=== PATIENT | male | born 1940 | race Caucasian/White ===

== ENCOUNTER 2020-12-05 04:31 | Emergency (ER) | payer OTHER ==
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
[2020-12-05] MEDS ORDERED: LORazepam 2 MG/ML SDV IVPUSH ONE (05:17)
[2020-12-05] MEDS ORDERED: Albuterol/Ipratropium 3.0-0.5 MG/3 ML Neb Soln NEB ONE (05:25)
[2020-12-05] MEDS ORDERED: methylPREDNISolone Sodium Succinate 125 MG/2 ML SDV IVPUSH ONE (05:26)
[2020-12-05] MEDS ORDERED: Doxycycline 100 MG Cap PO ONE (07:35)
--- NOTE | 2020-12-05 07:48 | CR ---
Chest: Portable view of the chest was obtained. Comparison: No prior chest imaging is available. Heart size and mediastinum are within normal limits. Lungs are clear but hyperinflated. Bony structures are osteopenic. No acute osseous abnormality is seen on this study. Impression: 1. Emphysematous change. 2. Nothing acute is seen on portable chest x-ray. Diagnostic code #2
== END 2020-12-05 08:50 | disposition home or self-care (01) ==
LOC: JD.ED 04:31
DX: J40 Bronchitis, not specified as acute or chronic (principal); J06.9 Acute upper respiratory infection, unspecified; I10 Essential (primary) hypertension; Z20.822 Contact with and (suspected) exposure to COVID-19; Z72.0 Tobacco use
CPT/HCPCS: 36415; 71045; 80053; 84484; 85025; 85610; 85730; 87635; 93005; 94640; 96374; 96375; 99285; A9270; J2060; J2930; J7620-GY; U0002

== ENCOUNTER 2020-12-09 10:17 | Inpatient (IN) | payer OTHER, MEDICARE ==
[2020-12-09] MEDS ORDERED: Sodium Chloride 0.9% 10 ML Syringe FLUSH PRN ×2 (10:31→11:04)
[2020-12-09] MEDS ORDERED: Sodium Chloride 0.9% 1,000 ML IV STA (10:49)
[2020-12-09] MEDS ORDERED: Ondansetron 4 MG/2 ML SDV IVPUSH ONE (11:01)
[2020-12-09] MEDS ORDERED: Albuterol/Ipratropium 3.0-0.5 MG/3 ML Neb Soln NEB ONE (11:01)
[2020-12-09] MEDS ORDERED: Iopamidol 612 MG/ML 100 ML Bottle IVPUSH ONE (11:04)
--- NOTE | 2020-12-09 11:12 | EDM.PDOC ---
ED HPI GENERAL MEDICAL PROBLEM - General Chief Complaint: Gastrointestinal Problem Stated Complaint: [facility] Time Seen by Provider: 12/09/20 10:31 Source of Information: Reports: Patient, RN Notes Reviewed History Limitations: Reports: No Limitations - History of Present Illness INITIAL COMMENTS - FREE TEXT/NARRATIVE: She is a 79-year-old male presenting to the emergency department via [facility] with complaints of GI bleed. He reports around 6 AM this morning, he awoke and had to have a bowel movement. At that time he reports his stool was light red, diarrhea nature. Since that time, he has gone to 6 to 8-4 times and it is now dark red in color. Denies any history of GI bleeds and he is not on blood thinners. He denies any abdominal pain. States he feels nauseous but has had no vomiting. Does report dizziness with position changes. Patient has a history of chronic anemia. Patient has a history of COPD chronically on 3 L of oxygen by nasal cannula. He was seen here 4 days ago and started on doxycycline and prednisone for treatment of COPD exacerbation. He has not taken the prednisone today, but has been taking it daily prior to today. He continues to have intermittent chest discomfort which he describes as tightness and feels it is likely related to his COPD. He last had a colonoscopy 4 to 5 years ago. Reports they removed a number of polyps but they all came back benign. He is in the area visiting family and currently lives in a camper. He is ultimately planning to end up in [place] where he will live. Patient does report depr ession. States his recently . He has had thoughts about dying but denies any suicidal plan or intent. He has never attempted to harm himself in the past. Patient reports that he does have advanced directives but does not have them with him and they are not on file, however he did verbalized to both myself and KAYDEN Peck that he wishes to be a DNR/DNI. Bilateral Nare Pain Score (Numeric/FACES): 3 - Related Data Allergies Allergy/AdvReac Type Severity Reaction Status Date / Time No Known Allergies Allergy Verified 12/09/20 15:56 Home Meds: Home Meds Doxycycline [Vibra-Tabs] 100 mg PO BID #14 tablet 12/05/20 [Rx] Acetaminophen 1,000 mg PO TID PRN 12/09/20 [History] Albuterol [Proventil HFA] 2 puff INH QID PRN 12/09/20 [History] Albuterol [Proventil Neb Soln] 2.5 mg INH QID PRN 12/09/20 [History] Ascorbic Acid 1,000 mg PO DAILY 12/09/20 [History] Budesonide/Formoterol [Symbicort 160-4.5 MCG] 2 puff INH BID 12/09/20 [History] Calcium Carbonate [Tums] 500 mg CHEW QID PRN 12/09/20 [History] Calcium Carbonate/Vitamin D3 [Calcium 600Mg-D3 400 Unit Sfgl] 1 tab PO BID 12/09/20 [History] Cannabidiol (Cbd) Extract [CBD Oil] 1 dose PO ASDIRECTED PRN 12/09/20 [History] Cholecalciferol (Vitamin D3) [D3-2000] 250 mcg PO DAILY 12/09/20 [History] Ferrous Gluconate 324 mg PO Q48H 12/09/20 [History] Fluticasone Propionate [Flonase Allergy Relief] 2 sprays NASBOTH DAILY 12/09/20 [History] LORazepam [Ativan] 0.5 mg PO DAILY PRN 12/09/20 [History] Levothyroxine Sodium [Levoxyl] 100 mcg PO ACBREAKFAST 12/09/20 [History] Lidocaine 5% [Lidoderm 5%] 700 mg TOP DAILY 12/09/20 [History] Loratadine [Claritin] 10 mg PO DAILY PRN 12/09/20 [History] Melatonin 9 mg PO BEDTIME 12/09/20 [History] Meloxicam 15 mg PO QPM 12/09/20 [History] Menthol [Icy Hot] 1 patch TOP DAILY PRN 12/09/20 [History] Multivit with Iron,Minerals [Complete Senior] 1 tab PO DAILY 12/09/20 [History] Max-3 Fatty Acids/Fish Oil [Fish Oil 1,000 mg Capsule] 1 cap PO DAILY 12/09/20 [History] Omeprazole 20 mg PO QPM 12/09/20 [History] Tiotropium [place] [Spiriva Respimat] 2 puff INH DAILY 12/09/20 [History] Zinc Sulfate 50 mg PO DAILY 12/09/20 [History] guaiFENesin [Guaifenesin] 400 mg PO TID PRN 12/09/20 [History] lisinopriL [Zestril] 40 mg PO DAILY 12/09/20 [History] polyethylene glycoL 3350 [Polyethylene Glycol 3350] 17 gm PO DAILY PRN 12/09/20 [History] Past Medical History HEENT History: Reports: Impaired Vision Other HEENT History: septoplasty Cardiovascular History: Reports: High Cholesterol Respiratory History: Reports: COPD, SOB Gastrointestinal History: Reports: Diverticulosis, Other (See Below) Other Gastrointestinal History: Diverticulitis. Musculoskeletal History: Reports: Back Pain, Chronic, Osteoporosis Psychiatric History: Reports: Anxiety, Depression Endocrine/Metabolic History: Reports: Hypothyroidism - Infectious Disease History Infectious Disease History: Reports: Chicken Pox, Measles Social & Family History - Tobacco Use Tobacco Use Status *Q: Current Every Day Tobacco User Years of Tobacco use: 60 Packs/Tins Daily: 0.2 - Caffeine Use Caffeine Use: Reports: Coffee - Recreational Drug Use Recreational Drug Use: Yes Recreational Drug Type: Reports: Marijuana/Hashish ED ROS GENERAL - Review of Systems Review Of Systems: See Below Constitutional: Reports: No Symptoms HEENT: Reports: No Symptoms Respiratory: Reports: Shortness of Breath, Pleuritic Chest Pain, Cough Cardiovascular: Reports: Dyspnea on Exertion, Lightheadedness. Denies: Syncope Endocrine: Reports: No Symptoms GI/Abdominal: Reports: Bloody Stool, Diarrhea, Nausea. Denies: Abdominal Pain, Vomiting : Reports: No Symptoms Musculoskeletal: Reports: No Symptoms Skin: Reports: No Symptoms Neurological: Reports: Dizziness Psychiatric: Reports: No Symptoms Hematologic/Lymphatic: Reports: No Symptoms Immunologic: Reports: No Symptoms ED EXAM, GI/ABD - Physical Exam Exam: See Below Exam Limited By: No Limitations General Appearance: Alert, WD/WN, No Apparent Distress Respiratory/Chest: Lungs Clear, No Accessory Muscle Use, Chest Non-Tender, Decreased Breath Sounds, Accessory Muscle Use, Prolonged Expiration. No: Wheezing Cardiovascular: Normal Peripheral Pulses, Regular Rate, Rhythm, No Edema, No Gallop, No JVD, No Murmur, No Rub GI/Abdominal Exam: Normal Bowel Sounds, Soft, Non-Tender, No Organomegaly, No Distention, No Abnormal Bruit, No Mass, Pelvis Stable Rectal (Males) Exam: Heme + Stool Neurological: Alert, Oriented, CN II-XII Intact, Normal Cognition, Normal Reflexes, No Motor/Sensory Deficits Psychiatric: Normal Affect, Normal Mood Skin Exam: Warm, Dry, Intact, Normal Color, No Rash #1 Interpretation EKG Date: 12/09/20 Time: 11:09 Rhythm: NSR Rate (Beats/Min): 82 [place]: Normal P-Wave: Present QRS: Normal ST-T: Normal QT: Normal Course - Vital Signs Last Recorded V/S: Last Vital Signs Temp 97.9 F 12/10/20 10:06 Pulse 71 12/10/20 11:17 Resp 20 12/10/20 10:06 BP 143/62 H 12/10/20 11:17 Pulse Ox 97 12/10/20 12:59 - Orders/Labs/Meds Orders: Medication Orders Acetaminophen (Acetaminophen 325 Mg Tab) 650 mg PO Q4H PRN PRN Reason: Pain (Mild 1-3)/fever Last Admin: 12/09/20 21:11 Dose: 650 mg Documented by: BROWN Albuterol (Albuterol 0.083% 2.5 Mg/3 Ml Neb Soln) 2.5 mg NEB Q2H PRN PRN Reason: Shortness Of Breath/wheezing Last Admin: 12/10/20 08:58 Dose: 2.5 mg Documented by: Admin: 12/09/20 18:49 Dose: 2.5 mg Documented by: Admin: 12/09/20 15:06 Dose: 2.5 mg Documented by: AUSTIN Albuterol (Albuterol 6.7 Gm Inhaler) 0 gm INH QID PRN PRN Reason: Shortness of Breath Last Admin: 12/10/20 11:42 Dose: 2 inhalation Documented by: Admin: 12/10/20 06:08 Dose: 2 inhalation Documented by: Admin: 12/10/20 00:34 Dose: 2 inhalation Documented by: LUIS Albuterol/Ipratropium (Albuterol/Ipratropium 3.0-0.5 Mg/3 Ml Neb Soln) 3 ml NEB Q4H PRN PRN Reason: Shortness Of Breath/wheezing Last Admin: 12/10/20 12:57 Dose: 3 ml Documented by: AUSTIN Calcium Carbonate/Glycine (Calcium Carbonate 500 Mg Tab.Chew) 0 mg CHEW QID PRN PRN Reason: Other Guaifenesin (Guaifenesin 600 Mg Tab.Er) 600 mg PO BID [facility] Last Admin: 12/10/20 11:23 Dose: 600 mg Documented by: Admin: 12/09/20 21:57 Dose: 600 mg Documented by: ALINE Influenza Virus Vaccine (Flu Vacc [id number](65up)/Mf59c/Pf 60 Mcg/0.5 Ml Syringe) 60 mcg IM .ONCE ONE Stop: 12/11/20 12:01 Loratadine (Loratadine 10 Mg Tab) 10 mg PO DAILY PRN PRN Reason: Allergies Lorazepam (Lorazepam 0.5 Mg Tab) 0.5 mg PO DAILY PRN PRN Reason: Other Melatonin (Melatonin 3 Mg Tab) 9 mg PO BEDTIME [facility] Mometasone Furoate/Formoterol Fumar (Formoterol/Mometasone 200-5 Mcg 8.8 Gm Inhaler) 2 puff IH BIDRT [facility] Last Admin: 12/10/20 06:08 Dose: 2 inhalation Documented by: Admin: 12/10/20 00:43 Dose: 2 inhalation Documented by: LUIS Ondansetron HCl (Ondansetron 4 Mg/2 Ml Sdv) 4 mg IV Q6H PRN PRN Reason: Nausea/Vomiting Last Admin: 12/10/20 07:36 Dose: 4 mg Documented by: Admin: 12/09/20 23:14 Dose: 4 mg Documented by: MIKEY Sodium Chloride (Sodium Chloride 0.9% 10 Ml Syringe) 10 ml FLUSH ONETIME PRN PRN Reason: IV FLUSH Last Admin: 12/09/20 11:25 Dose: 10 ml Documented by: SANDRINE Tiotropium Marion (Tiotropium Marion 4 Gm Inhalation Grassflat (2.5mcg/1 Dose; 10 Doses)) 0 gm INH DAILY [facility] Last Admin: 12/10/20 08:59 Dose: 2 dose Documented by: AUSTIN Labs: Laboratory Tests 12/09/20 12/09/20 12/09/20 Range/Units 10:46 10:55 10:55 WBC 9.34 H (4.23-9.07) K/mm3 RBC 3.11 L (4.63-6.08) M/mm3 Hgb 9.5 L (13.7-17.5) gm/dl Hct 30.9 L (40.1-51.0) % MCV 99.4 H (79.0-92.2) fl MCH 30.5 (25.7-32.2) pg MCHC 30.7 L (32.2-35.5) g/dl RDW Std Deviation 48.0 H (35.1-43.9) fL Plt Count 270 (163-337) K/mm3 MPV 10.3 (9.4-12.3) fl Neut % (Auto) 66.1 (34.0-67.9) % Lymph % (Auto) 24.9 (21.8-53.1) % [place] % (Auto) 7.3 (5.3-12.2) % Eos % (Auto) 1.1 (0.8-7.0) Baso % (Auto) 0.4 (0.1-1.2) % Neut # (Auto) 6.17 H (1.78-5.38) K/mm3 Lymph # (Auto) 2.33 (1.32-3.57) K/mm3 [place] # (Auto) 0.68 (0.30-0.82) K/mm3 Eos # (Auto) 0.10 (0.04-0.54) K/mm3 Baso # (Auto) 0.04 (0.01-0.08) K/mm3 Sodium 143 (136-145) mEq/L Potassium 3.4 L (3.5-5.1) mEq/L Chloride 105 (98-107) mEq/L Carbon Dioxide 30 (21-32) mEq/L Anion Gap 11.4 (5-15) BUN 17 (7-18) mg/dL Creatinine 0.8 (0.7-1.3) mg/dL Est Cr Clr Drug Dosing 73.63 mL/min Estimated GFR (MDRD) > 60 (>60) mL/min BUN/Creatinine Ratio 21.3 H (14-18) Glucose 107 H (70-99) mg/dL Calcium 8.8 (8.5-10.1) mg/dL Total Bilirubin 0.3 (0.2-1.0) mg/dL AST 9 L (15-37) U/L ALT 21 (16-63) U/L Alkaline Phosphatase 65 (46-116) U/L Troponin I (0.00-0.056) ng/mL C-Reactive Protein <0.2 (<1.0) mg/dL NT-Pro-B Natriuret Pep (0-450) pg/mL Total Protein 6.9 (6.4-8.2) g/dl Albumin 3.7 (3.4-5.0) g/dl Globulin 3.2 gm/dL Albumin/Globulin Ratio 1.2 (1-2) TSH 3rd Generation (0.358-3.74) uIU/mL Urine Color Yellow (Yellow) Urine Appearance Clear (Clear) Urine pH 6.0 (5.0-8.0) Ur Specific [place] 1.025 (1.005-1.030) Urine Protein Trace H (Negative) Urine Glucose (UA) Negative (Negative) Urine Ketones Negative (Negative) Urine Occult Blood Negative (Negative) Urine Nitrite Negative (Negative) Urine Bilirubin Negative (Negative) Urine Urobilinogen 0.2 (0.2-1.0) Ur Leukocyte Esterase Negative (Negative) Urine RBC 0-5 (0-5) /hpf Urine WBC 0-5 (0-5) /hpf Ur Squamous Epith Cells 0-5 (0-5) /hpf Urine Bacteria Few (FEW) /hpf Urine Mucus Not seen (FEW) /hpf SARS-CoV-2 RNA (MILO) (NEGATIVE) Blood Type Gel Antibody Screen Crossmatch 12/09/20 12/09/20 12/09/20 Range/Units 10:55 10:55 10:55 WBC (4.23-9.07) K/mm3 RBC (4.63-6.08) M/mm3 Hgb (13.7-17.5) gm/dl Hct (40.1-51.0) % MCV (79.0-92.2) fl MCH (25.7-32.2) pg MCHC (32.2-35.5) g/dl RDW Std Deviation (35.1-43.9) fL Plt Count (163-337) K/mm3 MPV (9.4-12.3) fl Neut % (Auto) (34.0-67.9) % Lymph % (Auto) (21.8-53.1) % [place] % (Auto) (5.3-12.2) % Eos % (Auto) (0.8-7.0) Baso % (Auto) (0.1-1.2) % Neut # (Auto) (1.78-5.38) K/mm3 Lymph # (Auto) (1.32-3.57) K/mm3 [place] # (Auto) (0.30-0.82) K/mm3 Eos # (Auto) (0.04-0.54) K/mm3 Baso # (Auto) (0.01-0.08) K/mm3 Sodium (136-145) mEq/L Potassium (3.5-5.1) mEq/L Chloride (98-107) mEq/L Carbon Dioxide (21-32) mEq/L Anion Gap (5-15) BUN (7-18) mg/dL Creatinine (0.7-1.3) mg/dL Est Cr Clr Drug Dosing mL/min Estimated GFR (MDRD) (>60) mL/min BUN/Creatinine Ratio (14-18) Glucose (70-99) mg/dL Calcium (8.5-10.1) mg/dL Total Bilirubin (0.2-1.0) mg/dL AST (15-37) U/L ALT (16-63) U/L Alkaline Phosphatase (46-116) U/L Troponin I < 0.017 (0.00-0.056) ng/mL C-Reactive Protein (<1.0) mg/dL NT-Pro-B Natriuret Pep 265 (0-450) pg/mL Total Protein (6.4-8.2) g/dl Albumin (3.4-5.0) g/dl Globulin gm/dL Albumin/Globulin Ratio (1-2) TSH 3rd Generation (0.358-3.74) uIU/mL Urine Color (Yellow) Urine Appearance (Clear) Urine pH (5.0-8.0) Ur Specific [place] (1.005-1.030) Urine Protein (Negative) Urine Glucose (UA) (Negative) Urine Ketones (Negative) Urine Occult Blood (Negative) Urine Nitrite (Negative) Urine Bilirubin (Negative) Urine Urobilinogen (0.2-1.0) Ur Leukocyte Esterase (Negative) Urine RBC (0-5) /hpf Urine WBC (0-5) /hpf Ur Squamous Epith Cells (0-5) /hpf Urine Bacteria (FEW) /hpf Urine Mucus (FEW) /hpf SARS-CoV-2 RNA (MILO) (NEGATIVE) Blood Type O NEGATIVE Gel Antibody Screen Negative Crossmatch See Detail 12/09/20 12/09/20 12/09/20 Range/Units 10:55 10:55 11:05 WBC (4.23-9.07) K/mm3 RBC (4.63-6.08) M/mm3 Hgb (13.7-17.5) gm/dl Hct (40.1-51.0) % MCV (79.0-92.2) fl MCH (25.7-32.2) pg MCHC (32.2-35.5) g/dl RDW Std Deviation (35.1-43.9) fL Plt Count (163-337) K/mm3 MPV (9.4-12.3) fl Neut % (Auto) (34.0-67.9) % Lymph % (Auto) (21.8-53.1) % [place] % (Auto) (5.3-12.2) % Eos % (Auto) (0.8-7.0) Baso % (Auto) (0.1-1.2) % Neut # (Auto) (1.78-5.38) K/mm3 Lymph # (Auto) (1.32-3.57) K/mm3 [place] # (Auto) (0.30-0.82) K/mm3 Eos # (Auto) (0.04-0.54) K/mm3 Baso # (Auto) (0.01-0.08) K/mm3 Sodium (136-145) mEq/L Potassium (3.5-5.1) mEq/L Chloride (98-107) mEq/L Carbon Dioxide (21-32) mEq/L Anion Gap (5-15) BUN (7-18) mg/dL Creatinine (0.7-1.3) mg/dL Est Cr Clr Drug Dosing mL/min Estimated GFR (MDRD) (>60) mL/min BUN/Creatinine Ratio (14-18) Glucose (70-99) mg/dL Calcium (8.5-10.1) mg/dL Total Bilirubin (0.2-1.0) mg/dL AST (15-37) U/L ALT (16-63) U/L Alkaline Phosphatase (46-116) U/L Troponin I (0.00-0.056) ng/mL C-Reactive Protein (<1.0) mg/dL NT-Pro-B Natriuret Pep (0-450) pg/mL Total Protein (6.4-8.2) g/dl Albumin (3.4-5.0) g/dl Globulin gm/dL Albumin/Globulin Ratio (1-2) TSH 3rd Generation 1.545 (0.358-3.74) uIU/mL Urine Color (Yellow) Urine Appearance (Clear) Urine pH (5.0-8.0) Ur Specific [place] (1.005-1.030) Urine Protein (Negative) Urine Glucose (UA) (Negative) Urine Ketones (Negative) Urine Occult Blood (Negative) Urine Nitrite (Negative) Urine Bilirubin (Negative) Urine Urobilinogen (0.2-1.0) Ur Leukocyte Esterase (Negative) Urine RBC (0-5) /hpf Urine WBC (0-5) /hpf Ur Squamous Epith Cells (0-5) /hpf Urine Bacteria (FEW) /hpf Urine Mucus (FEW) /hpf SARS-CoV-2 RNA (MILO) Negative (NEGATIVE) Blood Type Gel Antibody Screen Crossmatch See Detail Meds: Medications Generic Name Dose Route Start Last Admin Trade Name Freq PRN Reason Stop Dose Admin Acetaminophen 650 mg 12/09/20 14:21 12/09/20 21:11 Acetaminophen 325 Mg Tab PO 650 mg Q4H PRN Administration Pain (Mild 1-3)/fever Albuterol 2.5 mg 12/09/20 14:21 12/10/20 08:58 Albuterol 0.083% 2.5 Mg/3 Ml Neb Soln NEB 2.5 mg Q2H PRN Administration Shortness Of Breath/wheezing Albuterol 0 gm 12/09/20 22:03 12/10/20 11:42 Albuterol 6.7 Gm Inhaler INH 2 inhalation QID PRN Administration Shortness of Breath Albuterol/Ipratropium 3 ml 12/09/20 14:21 12/10/20 12:57 Albuterol/Ipratropium 3.0-0.5 Mg/3 Ml Neb Soln NEB 3 ml Q4H PRN Administration Shortness Of Breath/wheezing Calcium Carbonate/Glycine 0 mg 12/09/20 22:03 Calcium Carbonate 500 Mg Tab.Chew CHEW QID PRN Other Guaifenesin 600 mg 12/09/20 21:30 12/10/20 11:23 Guaifenesin 600 Mg Tab.Er PO 600 mg BID DIAZ Administration Influenza Virus Vaccine 60 mcg 12/11/20 12:00 Flu Vacc [id number](65up)/Mf59c/Pf 60 Mcg/0.5 Ml Syringe IM 12/11/20 12:01 .ONCE ONE Loratadine 10 mg 12/09/20 22:03 Loratadine 10 Mg Tab PO DAILY PRN Allergies Lorazepam 0.5 mg 12/09/20 22:03 Lorazepam 0.5 Mg Tab PO DAILY PRN Other Melatonin 9 mg 12/10/20 21:00 Melatonin 3 Mg Tab PO BEDTIME DIAZ Mometasone Furoate/Formoterol Fumar 2 puff 12/10/20 00:39 12/10/20 06:08 Formoterol/Mometasone 200-5 Mcg 8.8 Gm Inhaler IH 2 inhalation BIDRT DIAZ Administration Ondansetron HCl 4 mg 12/09/20 14:21 12/10/20 07:36 Ondansetron 4 Mg/2 Ml Sdv IV 4 mg Q6H PRN Administration Nausea/Vomiting Sodium Chloride 10 ml 12/09/20 11:04 12/09/20 11:25 Sodium Chloride 0.9% 10 Ml Syringe FLUSH 10 ml ONETIME PRN Administration IV FLUSH Tiotropium [place] 0 gm 12/10/20 09:00 12/10/20 08:59 Tiotropium [place] 4 Gm Inhalation Grassflat (2.5mcg/1 Dose; 10 Doses) INH 2 dose DAILY DIAZ Administration Discontinued Medications Generic Name Dose Route Start Last Admin Trade Name Freq PRN Reason Stop Dose Admin Albuterol 2.5 mg 12/09/20 22:03 Albuterol 0.083% 2.5 Mg/3 Ml Neb Soln INH QID PRN Shortness of Breath Albuterol/Ipratropium 3 ml 12/09/20 11:01 12/09/20 11:40 Albuterol/Ipratropium 3.0-0.5 Mg/3 Ml Neb Soln NEB 12/09/20 11:02 3 ml ONETIME ONE Administration Enoxaparin Sodium 40 mg 12/10/20 09:00 Enoxaparin 40 Mg/0.4 Ml Syringe SUBCUT DAILY DIAZ Fentanyl Confirm 12/10/20 08:31 Fentanyl 100 Mcg/2 Ml Sdv Administered 12/10/20 08:32 Dose 100 mcg .ROUTE .STK-MED ONE Sodium Chloride 1,000 mls @ 150 mls/hr 12/09/20 10:49 12/09/20 14:44 Normal Saline IV 12/09/20 17:28 0 mls/hr NOW STA Infusion Sodium Chloride 150 mls @ 100 mls/hr 12/09/20 23:15 12/09/20 23:46 Normal Saline IV 12/10/20 00:44 100 mls/hr ASDIRECTED ONE Administration Sodium Chloride Confirm 12/09/20 23:30 12/10/20 02:15 Normal Saline Administered 12/10/20 00:01 Not Given Dose 100 mls @ as directed .ROUTE .STK-MED ONE Lidocaine HCl Confirm 12/10/20 08:32 Xylocaine-Mpf 1% Administered 12/10/20 08:33 Dose 4 mls @ as directed .ROUTE .STK-MED ONE Lactated Ringer's Confirm 12/10/20 09:34 Ringers, Lactated Administered 12/10/20 09:35 Dose 1,000 mls @ as directed .ROUTE .STK-MED ONE Iopamidol 100 ml 12/09/20 11:04 12/09/20 11:25 Iopamidol 612 Mg/Ml 100 Ml Bottle IVPUSH 12/09/20 11:05 100 ml ONETIME ONE Administration Midazolam HCl Confirm 12/10/20 08:32 Midazolam 1 Mg/Ml 2 Ml Sdv Administered 12/10/20 08:33 Dose 2 mg .ROUTE .STK-MED ONE Mometasone Furoate/Formoterol Fumar 2 puff 12/10/20 06:00 Formoterol/Mometasone 200-5 Mcg 8.8 Gm Inhaler IH BIDRT [facility] Ondansetron HCl 4 mg 12/09/20 11:01 12/09/20 11:35 Ondansetron 4 Mg/2 Ml Sdv IVPUSH 12/09/20 11:02 4 mg ONETIME ONE Administration Polyethylene Glycol/Electrolytes 4,000 ml 12/09/20 21:32 12/09/20 21:57 Polyethylene Glycol/Electrolytes 4,000 Ml Bottle PO 12/09/20 21:33 4,000 ml ONETIME ONE Administration Prednisone 40 mg 12/09/20 15:07 12/09/20 15:36 Prednisone 20 Mg Tab PO 12/09/20 15:08 Not Given ONETIME ONE Propofol Confirm 12/10/20 08:31 Propofol 200 Mg/20 Ml Sdv Administered 12/10/20 08:32 Dose 200 mg .ROUTE .STK-MED ONE Propofol Confirm 12/10/20 09:47 Propofol 200 Mg/20 Ml Sdv Administered 12/10/20 09:48 Dose 200 mg .ROUTE .STK-MED ONE Sodium Chloride 10 ml 12/09/20 10:31 12/09/20 11:46 Sodium Chloride 0.9% 10 Ml Syringe FLUSH 10 ml ASDIRECTED PRN Administration Keep Vein Open - Re-Assessments/Exams Free Text/Narrative Re-Assessment/Exam: Patient is a 79-year-old male presenting to the emergency department with complaints of acute onset of GI bleed around 6 AM this morning. He estimates has had 6-8 episodes of watery, bloody diarrhea which she describes a significant amount. He did have a BM on arrival to ER and it is watery and dark red. Abdominal exam is unremarkable. Lung sounds are diminished with no wheezing. Patient states that he continues to feel tightness chest. I will give him a DuoNeb breathing treatment. I have also ordered blood work, urinalysis, Covid test in preparation for likely admission, EKG, chest x-ray, and CT scan of the abdomen pelvis with IV contrast only. 12/09/20 12:25 Hematology significant for hemoglobin low at 9.5, potassium 3.4. Otherwise unremarkable. Urinalysis negative for infection. Covid is negative. CT scan of the abdomen pelvis impression as follows: 1. Diverticuli within the sigmoid and descending colon. No inflammatory changes seen to indicate diverticulitis. 2. Other findings as described above. Nothing acute is appreciated on CT study of the abdomen pelvis. 3. Please consider further evaluation by endoscopy as needed. Case was discussed with general surgeon on-call, Dr. Blanco. He recommended admission under hospitalist service for monitoring. If bleeding does not stop and hemoglobin continues to drop, he will consider endoscopy tomorrow. Case was discussed with hospitalist, Dr. Lizama. He is excepted the patient for admission. Patient updated and is in agreement this plan. Departure - Departure Time of Disposition: 21:25 Disposition: Admitted As Inpatient 67 Condition: Good Clinical Impression: GI bleed not requiring more than 4 units of blood in 24 hours, ICU, or surgery COPD (chronic obstructive pulmonary disease) Qualifiers: COPD type: COPD with acute exacerbation Qualified Code(s): J44.1 - Chronic obstructive pulmonary disease with (acute) exacerbation - Discharge Information Sepsis Event Note (ED) - Evaluation Sepsis Screening Result: No Definite Risk
--- NOTE | 2020-12-09 11:38 | CR ---
Chest: Portable view of the chest was obtained. Comparison: Prior chest x-ray of 12/05/20. Lungs are hyperinflated compatible with emphysematous change. Lungs show no acute parenchymal change. Heart size and mediastinum are within normal limits. Impression: 1. Emphysematous change. 2. Nothing acute is seen on portable chest x-ray. Diagnostic code #2
--- NOTE | 2020-12-09 12:32 | CT ---
CT abdomen and pelvis Technique: Multiple axial sections were obtained from above the dome of the diaphragm inferiorly through the pubic symphysis. Intravenous contrast was utilized. No oral contrast has been given. Delayed images were also obtained through the abdomen and pelvis. Reconstructed coronal and sagittal images were obtained. Comparison: No prior abdominal imaging is available. Findings: Visualized lung bases show emphysematous change without acute finding. Liver contains no focal abnormality. Spleen size is normal. Adrenal glands show no nodule. Pancreas is within normal limits. Gallbladder contains no calcified gallstones. Kidneys show symmetric contrast enhancement. No hydronephrosis is seen. Small abnormality is noted within the mid left kidney measuring 8 mm. This is too small to get accurate Hounsfield unit measurements. Findings most likely are due to a cyst. Ureters show no dilatation. Contrast is noted within the ureters and the bladder on delayed images. Bladder wall is somewhat thickened most likely related to the patient's age. Abdominal aorta shows diffuse atherosclerotic calcification. Areas of ectasia are seen with no aneurysm. Calcification continues into the iliac vessels. No retroperitoneal adenopathy or mesenteric abnormalities are seen. No pelvic mass or adenopathy is seen. Small fat-containing left inguinal hernia is noted. Scattered diverticuli are seen within the sigmoid colon and descending colon. No inflammatory change is seen to indicate diverticulitis. Appendix is seen which is normal. No discrete bowel dilatation is seen. No bowel wall thickening is noted. Bone window settings were reviewed which show a compression deformity within L2. This is most likely old. Severe disc space narrowing at L5-S1 is noted with vacuum disc phenomena. No acute osseous abnormality is seen. Impression: 1. Diverticuli within the sigmoid and descending colon. No inflammatory change is seen to indicate diverticulitis. 2. Other findings as described above. Nothing acute is appreciated on CT study of the abdomen and pelvis. 3. Please consider if further evaluation by endoscopy is needed. Diagnostic code #2
--- NOTE | 2020-12-09 14:11 | PCM.HP.2 ---
H&P History of Present Illness - General Date of Service: 12/09/20 Admit Problem/Dx: Admission Diagnosis/Problem Admission Diagnosis/Problem GI bleed not requiring more than 4 units of blood in 24 hours, ICU, or surgery Source of Information: Patient, Other (ED note) History Limitations: Reports: No Limitations - History of Present Illness Initial Comments - Free Text/Narative: Jean-Claude is a 79yo white male who presented to the ED on 12/09/2020 due to bloody diarrhea. At 0600 today he had a bowel movement with light red diarrhea. He has had 6-8 loose BM's since which have had darker red blood in them. He has also had abdominal pain which is crampy in nature which started in the last few hours since he has been in the ED. He is nauseous. Denies any previous history of melena or hematochezia, hemorrhoids, clotting or bleeding disorder. He had a colonoscopy with polypectomy 4-5 years ago, all were benign. He has a history of diverticulosis and constipation for which he takes Miralax or a stool softener daily. Abdominal CT revealed diverticuli in the descending and sigmoid colon without any sign of inflammation. General surgery was consulted and recommended observation and endoscopy tomorrow if hgb continues to drop. Labs were unrema rkable except for Hgb of 9.5 and K+ of 3.4. He was seen in the ED 4 days ago for a COPD exacerbation, hgb at that time was 10.2, and was prescribed doxycycline and prednisone. He is on 3L of supplemental O2 at home. He still feels short of breath and is on 3L supplemental O2 with saturations in the upper 90s. He is a and receives primary care through the [facility], but unable to do so locally secondary to "being in transit". He is currently living in a camper with the assistance of his grandson as he is planning to make his way to [place] to live near his daughter. He smokes 4 cigarettes/day. - Related Data Allergies/Adverse Reactions: Allergies Allergy/AdvReac Type Severity Reaction Status Date / Time No Known Allergies Allergy Verified 12/05/20 04:46 Home Medications: Home Meds Doxycycline [Vibra-Tabs] 100 mg PO BID #14 tablet 12/05/20 [Rx] predniSONE 40 mg PO WITHBREAKFAST #10 tab 12/05/20 [Rx] Past Medical History HEENT History: Reports: Impaired Vision Other HEENT History: septoplasty Cardiovascular History: Reports: High Cholesterol Respiratory History: Reports: COPD, SOB Gastrointestinal History: Reports: Diverticulosis, Other (See Below) Other Gastrointestinal History: Diverticulitis. Musculoskeletal History: Reports: Back Pain, Chronic, Osteoporosis Psychiatric History: Reports: Anxiety, Depression Endocrine/Metabolic History: Reports: Hypothyroidism - Infectious Disease History Infectious Disease History: Reports: Chicken Pox, Measles Social & Family History - Tobacco Use Tobacco Use Status *Q: Current Every Day Tobacco User Years of Tobacco use: 60 Packs/Tins Daily: 0.2 - Caffeine Use Caffeine Use: Reports: Coffee - Recreational Drug Use Recreational Drug Use: Yes Recreational Drug Type: Reports: Marijuana/Hashish H&P Review of Systems - Review of Systems: Review Of Systems: Comprehensive ROS is negative, except as noted in HPI. Exam - Exam Exam: See Below - Vital Signs Vital Signs: Last Vital Signs Temp 97.1 F 12/09/20 10:20 Pulse 78 12/09/20 10:20 Resp 12 12/09/20 10:20 BP 140/80 12/09/20 10:20 Pulse Ox 100 12/09/20 11:01 Weight: 77.111 kg - Exam Quality Assessment: Supplemental Oxygen General: Alert, Oriented, Cooperative HEENT: Conjunctiva Clear, EOMI, Hearing Intact, Mucosa Moist & [place] Lungs: Decreased Breath Sounds (bilaterally), Crackles (faint), Other (paradoxical breathing at baseline) Cardiovascular: Regular Rate, Regular Rhythm GI/Abdominal Exam: Normal Bowel Sounds, Soft, Non-Tender, No Organomegaly, No Distention, No Mass Extremities: Normal Inspection, Normal Range of Motion, Non-Tender, No Pedal Edema, Normal Capillary Refill Skin: Warm, Dry, Intact Neurological: Cranial Nerves Intact Neuro Extensive - Mental Status: Alert, Normal Mood/Affect, Normal Cognition Neuro Extensive - Motor, Sensory, Reflexes: CN II-XII Intact Psychiatric: Alert, Normal Affect, Depressed - Patient Data Lab Results Last 24 hrs: Laboratory Results - last 24 hr 12/09/20 12/09/20 12/09/20 Range/Units 10:46 10:55 10:55 WBC 9.34 H (4.23-9.07) K/mm3 RBC 3.11 L (4.63-6.08) M/mm3 Hgb 9.5 L (13.7-17.5) gm/dl Hct 30.9 L (40.1-51.0) % MCV 99.4 H (79.0-92.2) fl MCH 30.5 (25.7-32.2) pg MCHC 30.7 L (32.2-35.5) g/dl RDW Std Deviation 48.0 H (35.1-43.9) fL Plt Count 270 (163-337) K/mm3 MPV 10.3 (9.4-12.3) fl Neut % (Auto) 66.1 (34.0-67.9) % Lymph % (Auto) 24.9 (21.8-53.1) % Branch % (Auto) 7.3 (5.3-12.2) % Eos % (Auto) 1.1 (0.8-7.0) Baso % (Auto) 0.4 (0.1-1.2) % Neut # (Auto) 6.17 H (1.78-5.38) K/mm3 Lymph # (Auto) 2.33 (1.32-3.57) K/mm3 Branch # (Auto) 0.68 (0.30-0.82) K/mm3 Eos # (Auto) 0.10 (0.04-0.54) K/mm3 Baso # (Auto) 0.04 (0.01-0.08) K/mm3 Sodium 143 (136-145) mEq/L Potassium 3.4 L (3.5-5.1) mEq/L Chloride 105 (98-107) mEq/L Carbon Dioxide 30 (21-32) mEq/L Anion Gap 11.4 (5-15) BUN 17 (7-18) mg/dL Creatinine 0.8 (0.7-1.3) mg/dL Est Cr Clr Drug Dosing 73.63 mL/min Estimated GFR (MDRD) > 60 (>60) mL/min BUN/Creatinine Ratio 21.3 H (14-18) Glucose 107 H (70-99) mg/dL Calcium 8.8 (8.5-10.1) mg/dL Total Bilirubin 0.3 (0.2-1.0) mg/dL AST 9 L (15-37) U/L ALT 21 (16-63) U/L Alkaline Phosphatase 65 (46-116) U/L Troponin I (0.00-0.056) ng/mL C-Reactive Protein <0.2 (<1.0) mg/dL NT-Pro-B Natriuret Pep (0-450) pg/mL Total Protein 6.9 (6.4-8.2) g/dl Albumin 3.7 (3.4-5.0) g/dl Globulin 3.2 gm/dL Albumin/Globulin Ratio 1.2 (1-2) Urine Color Yellow (Yellow) Urine Appearance Clear (Clear) Urine pH 6.0 (5.0-8.0) Ur Specific Sunflower 1.025 (1.005-1.030) Urine Protein Trace H (Negative) Urine Glucose (UA) Negative (Negative) Urine Ketones Negative (Negative) Urine Occult Blood Negative (Negative) Urine Nitrite Negative (Negative) Urine Bilirubin Negative (Negative) Urine Urobilinogen 0.2 (0.2-1.0) Ur Leukocyte Esterase Negative (Negative) Urine RBC 0-5 (0-5) /hpf Urine WBC 0-5 (0-5) /hpf Ur Squamous Epith Cells 0-5 (0-5) /hpf Urine Bacteria Few (FEW) /hpf Urine Mucus Not seen (FEW) /hpf SARS-CoV-2 RNA (MILO) (NEGATIVE) Blood Type Gel Antibody Screen 12/09/20 12/09/20 12/09/20 Range/Units 10:55 10:55 10:55 WBC (4.23-9.07) K/mm3 RBC (4.63-6.08) M/mm3 Hgb (13.7-17.5) gm/dl Hct (40.1-51.0) % MCV (79.0-92.2) fl MCH (25.7-32.2) pg MCHC (32.2-35.5) g/dl RDW Std Deviation (35.1-43.9) fL Plt Count (163-337) K/mm3 MPV (9.4-12.3) fl Neut % (Auto) (34.0-67.9) % Lymph % (Auto) (21.8-53.1) % Branch % (Auto) (5.3-12.2) % Eos % (Auto) (0.8-7.0) Baso % (Auto) (0.1-1.2) % Neut # (Auto) (1.78-5.38) K/mm3 Lymph # (Auto) (1.32-3.57) K/mm3 Branch # (Auto) (0.30-0.82) K/mm3 Eos # (Auto) (0.04-0.54) K/mm3 Baso # (Auto) (0.01-0.08) K/mm3 Sodium (136-145) mEq/L Potassium (3.5-5.1) mEq/L Chloride (98-107) mEq/L Carbon Dioxide (21-32) mEq/L Anion Gap (5-15) BUN (7-18) mg/dL Creatinine (0.7-1.3) mg/dL Est Cr Clr Drug Dosing mL/min Estimated GFR (MDRD) (>60) mL/min BUN/Creatinine Ratio (14-18) Glucose (70-99) mg/dL Calcium (8.5-10.1) mg/dL Total Bilirubin (0.2-1.0) mg/dL AST (15-37) U/L ALT (16-63) U/L Alkaline Phosphatase (46-116) U/L Troponin I < 0.017 (0.00-0.056) ng/mL C-Reactive Protein (<1.0) mg/dL NT-Pro-B Natriuret Pep 265 (0-450) pg/mL Total Protein (6.4-8.2) g/dl Albumin (3.4-5.0) g/dl Globulin gm/dL Albumin/Globulin Ratio (1-2) Urine Color (Yellow) Urine Appearance (Clear) Urine pH (5.0-8.0) Ur Specific Sunflower (1.005-1.030) Urine Protein (Negative) Urine Glucose (UA) (Negative) Urine Ketones (Negative) Urine Occult Blood (Negative) Urine Nitrite (Negative) Urine Bilirubin (Negative) Urine Urobilinogen (0.2-1.0) Ur Leukocyte Esterase (Negative) Urine RBC (0-5) /hpf Urine WBC (0-5) /hpf Ur Squamous Epith Cells (0-5) /hpf Urine Bacteria (FEW) /hpf Urine Mucus (FEW) /hpf SARS-CoV-2 RNA (MILO) (NEGATIVE) Blood Type O NEGATIVE Gel Antibody Screen Negative 12/09/20 Range/Units 11:05 WBC (4.23-9.07) K/mm3 RBC (4.63-6.08) M/mm3 Hgb (13.7-17.5) gm/dl Hct (40.1-51.0) % MCV (79.0-92.2) fl MCH (25.7-32.2) pg MCHC (32.2-35.5) g/dl RDW Std Deviation (35.1-43.9) fL Plt Count (163-337) K/mm3 MPV (9.4-12.3) fl Neut % (Auto) (34.0-67.9) % Lymph % (Auto) (21.8-53.1) % Branch % (Auto) (5.3-12.2) % Eos % (Auto) (0.8-7.0) Baso % (Auto) (0.1-1.2) % Neut # (Auto) (1.78-5.38) K/mm3 Lymph # (Auto) (1.32-3.57) K/mm3 Branch # (Auto) (0.30-0.82) K/mm3 Eos # (Auto) (0.04-0.54) K/mm3 Baso # (Auto) (0.01-0.08) K/mm3 Sodium (136-145) mEq/L Potassium (3.5-5.1) mEq/L Chloride (98-107) mEq/L Carbon Dioxide (21-32) mEq/L Anion Gap (5-15) BUN (7-18) mg/dL Creatinine (0.7-1.3) mg/dL Est Cr Clr Drug Dosing mL/min Estimated GFR (MDRD) (>60) mL/min BUN/Creatinine Ratio (14-18) Glucose (70-99) mg/dL Calcium (8.5-10.1) mg/dL Total Bilirubin (0.2-1.0) mg/dL AST (15-37) U/L ALT (16-63) U/L Alkaline Phosphatase (46-116) U/L Troponin I (0.00-0.056) ng/mL C-Reactive Protein (<1.0) mg/dL NT-Pro-B Natriuret Pep (0-450) pg/mL Total Protein (6.4-8.2) g/dl Albumin (3.4-5.0) g/dl Globulin gm/dL Albumin/Globulin Ratio (1-2) Urine Color (Yellow) Urine Appearance (Clear) Urine pH (5.0-8.0) Ur Specific Sunflower (1.005-1.030) Urine Protein (Negative) Urine Glucose (UA) (Negative) Urine Ketones (Negative) Urine Occult Blood (Negative) Urine Nitrite (Negative) Urine Bilirubin (Negative) Urine Urobilinogen (0.2-1.0) Ur Leukocyte Esterase (Negative) Urine RBC (0-5) /hpf Urine WBC (0-5) /hpf Ur Squamous Epith Cells (0-5) /hpf Urine Bacteria (FEW) /hpf Urine Mucus (FEW) /hpf SARS-CoV-2 RNA (MILO) Negative (NEGATIVE) Blood Type Gel Antibody Screen Result Diagrams: 12/09/20 10:55 12/09/20 10:55 Sepsis Event Note - Evaluation Sepsis Screening Result: No Definite Risk - Focused Exam Vital Signs: Vital Signs Temp Pulse Resp BP Pulse Ox Pulse Ox 12/09/20 11:01 100 12/09/20 10:20 97.1 F 78 12 140/80 100 - Problem List (1) GI bleed not requiring more than 4 units of blood in 24 hours, ICU, or surgery SNOMED Code(s): 91206631 ICD Code: K92.2 - GASTROINTESTINAL HEMORRHAGE, UNSPECIFIED Status: Acute Priority: High Current Visit: No (2) COPD (chronic obstructive pulmonary disease) SNOMED Code(s): 05563534 ICD Code: J44.9 - CHRONIC OBSTRUCTIVE PULMONARY DISEASE, UNSPECIFIED Status: Chronic Priority: High Current Visit: No Qualifiers: COPD type: COPD with acute exacerbation Qualified Code(s): J44.1 - Chronic obstructive pulmonary disease with (acute) exacerbation (3) Hypothyroid SNOMED Code(s): 15621912 ICD Code: E03.9 - HYPOTHYROIDISM, UNSPECIFIED Status: Chronic Priority: Low Current Visit: No (4) Diverticulosis SNOMED Code(s): 568925759 ICD Code: K57.90 - DVRTCLOS OF INTEST, PART UNSP, W/O PERF OR ABSCESS W/O BLEED Status: Chronic Priority: Medium Current Visit: No (5) Depression SNOMED Code(s): 07091368 ICD Code: F32.A - DEPRESSION, UNSPECIFIED Status: Chronic Priority: Medium Current Visit: No (6) Hypokalemia SNOMED Code(s): 03203022 ICD Code: E87.6 - HYPOKALEMIA Status: Acute Priority: High Current Visit: No Problem List Initiated/Reviewed/Updated: Yes Orders Last 24hrs: Active Orders 24 hr Category Date Time Status Patient Status [ADT] Routine ADT 12/09/20 14:07 Active Peripheral IV Care [RC] . DIRECTED Care 12/09/20 10:32 Active RT Aerosol Therapy [RC] ASDIRECTED Care 12/09/20 11:01 Active PATIENT RETYPE [BBK] Routine Lab 12/09/20 11:52 Ordered Sodium Chloride 0.9% [Normal Saline] 1,000 ml Med 12/09/20 10:49 Active IV NOW Sodium Chloride 0.9% [Saline Flush] Med 12/09/20 10:31 Active 10 ml FLUSH ASDIRECTED PRN Sodium Chloride 0.9% [Saline Flush] Med 12/09/20 11:04 Active 10 ml FLUSH ONETIME PRN Peripheral IV Insertion Adult [OM.PC] Stat Oth 12/09/20 10:31 Ordered Medication Orders Sodium Chloride (Normal Saline) 1,000 mls @ 150 mls/hr IV NOW STA Stop: 12/09/20 17:28 Last Admin: 12/09/20 11:06 Dose: 150 mls/hr Documented by: WALLACE Sodium Chloride (Sodium Chloride 0.9% 10 Ml Syringe) 10 ml FLUSH ASDIRECTED PRN PRN Reason: Keep Vein Open Last Admin: 12/09/20 11:46 Dose: 10 ml Documented by: ROBYN Sodium Chloride (Sodium Chloride 0.9% 10 Ml Syringe) 10 ml FLUSH ONETIME PRN PRN Reason: IV FLUSH Last Admin: 12/09/20 11:25 Dose: 10 ml Documented by: SANDRINE Assessment/Plan Comment:: 12/09/2020 Assessment: Jean-Claude is a 79yo white male admitted for observation secondary to bright red bloody diarrhea and low hemoglobin. PMH is significant for diverticulosis, and his clinical picture points to the diagnosis of acute colonic diverticular hemorrhage. Abdominal CT revealed diverticulosis of sigmoid and descending colon without sign of inflammation. General surgery was consulted and will perform endoscopy tomorrow if hemoglobin continues to drop. He is hemodynamically stable. He is also experiencing an acute exacerbation of COPD which was diagnosed in the ED 4 days ago. He has been taking doxycycline and prednisone for this. Plan: GI bleed/diverticulosis * supplemental O2 as needed to maintain O2 saturation 92-95% - hyperoxygenation may reduce his respiratory drive secondary to severe COPD * repeat hgb/hct * clear liquid diet, NPO after midnight pending endoscopy tomorrow * endoscopy tomorrow if hgb continues to drop * ED consulted general surgery and they are following the case * NS at 100 mL/hr COPD with acute exacerbation * hold antibiotics, follow closely * give 40mg prednisone once to finish 5 day course for acute exacerbation * supplemental O2 as needed to maintain O2 saturation 92-95% * sub [place] for home Symbicort Hypokalemia * 40mEq IV * repeat CMP in a.m. Hypothyroidism * Levothyroxine 125mcg daily * check TSH Depression * follow-up with [facility] Consultation VTE prophylaxis: SCDs Code status: DNR/DNI - Mortality Measure Prognosis:: Good
[2020-12-09] MEDS: Albuterol 0.083% 2.5 MG/3 ML Neb Soln NEB PRN ×2 (15:06→18:49)
[2020-12-09] MEDS ORDERED: predniSONE 20 MG Tab PO ONE (15:07)
[2020-12-09] MEDS: Acetaminophen 325 MG Tab PO PRN (21:11)
[2020-12-09] MEDS ORDERED: Polyethylene Glycol/Electrolytes 4,000 ML Bottle PO ONE (21:32)
[2020-12-09] MEDS: guaiFENesin 600 MG Tab.ER PO SCH (21:57)
[2020-12-09] MEDS ORDERED: Loratadine 10 MG Tab PO PRN (22:03)
[2020-12-09] MEDS ORDERED: Albuterol 0.083% 2.5 MG/3 ML Neb Soln INH PRN (22:03)
[2020-12-09] MEDS ORDERED: Calcium Carbonate 500 MG Tab.Chew CHEW PRN (22:03)
[2020-12-09] MEDS: Ondansetron 4 MG/2 ML SDV IV PRN (23:14)
[2020-12-09] MEDS ORDERED: Sodium Chloride 0.9% 100 ML ONE (23:30)
[2020-12-10] MEDS: Albuterol 6.7 GM Inhaler INH PRN ×4 (00:34→15:38)
[2020-12-10] MEDS: Formoterol/Mometasone 200-5 MCG 8.8 GM Inhaler IH SCH ×3 (00:43→20:11)
[2020-12-10] MEDS ORDERED: Formoterol/Mometasone 200-5 MCG 8.8 GM Inhaler IH SCH (06:00)
[2020-12-10] MEDS: Ondansetron 4 MG/2 ML SDV IV PRN (07:36)
--- NOTE | 2020-12-10 08:05 | PCM.PREANE ---
Preanesthetic Assessment - Procedure Proposed Procedure: EGD and Colonoscopy - Anesthesia/Transfusion/Family Hx Anesthesia History: Prior Anesthesia Without Reaction Family History of Anesthesia Reaction: No Transfusion History: Prior Transfusion Without Reaction Intubation History: Unknown - Review of Systems General: No Symptoms (DNR on the Floor.), Weakness Pulmonary: No Symptoms (COPD: on home O2 at 3LPM nasal cannula. Smoker: 3-4 cigarettes/day: history of marijuana: CPD oil for pain recent exacerbation of COPD: on prednisone), Shortness of Breath, Cough Cardiovascular: No Symptoms (History of HTN/elevated cholesterol), Palpitations (with too many albuterol puffs.), Dyspnea on Exertion Gastrointestinal: No Symptoms (Diverticulosis history of: last colonoscopy 4-5 years ago/GERD), Abdominal Pain, Constipation (chronic), Hematochezia, Nausea Neurological: No Symptoms (History of chronic back pain), Numbness (neuropathy in legs) Other: Reports: Thyroid Problems (hypothyroid), Sinus Problem (seasonal allergies), Depression, Anxiety - Physical Assessment NPO Status Date: 12/09/20 NPO Status Time: 23:59 Vital Signs: Last Vital Signs Temp 36.7 C 12/10/20 02:19 Pulse 74 12/10/20 02:19 Resp 20 12/10/20 02:19 BP 167/83 H 12/10/20 02:19 Pulse Ox 100 12/10/20 06:09 Height: 1.73 m Weight: 76.975 kg ASA Class: 3 Mental Status: Alert & Oriented x3 Airway Class: Mallampati = 2 Dentition: Reports: Normal Dentition, [place](s), Missing Tooth/Teeth, Caries Thyro-Mental Finger Breadths: 3 Mouth Opening Finger Breadths: 3 ROM/Head Extension: Full Lungs: Decreased Breath Sounds, Wheezing (faint expiratory) Cardiovascular: Regular Rate, Regular Rhythm, No Murmurs - Lab Values: Laboratory Last Values WBC 6.57 K/mm3 (4.23-9.07) 12/10/20 03:27 RBC 2.81 M/mm3 (4.63-6.08) L 12/10/20 03:27 Hgb 8.5 gm/dl (13.7-17.5) L 12/10/20 03:27 Hct 27.3 % (40.1-51.0) L 12/10/20 03:27 MCV 97.2 fl (79.0-92.2) H 12/10/20 03:27 MCH 30.2 pg (25.7-32.2) 12/10/20 03: MCHC 31.1 g/dl (32.2-35.5) L 12/10/20 03: RDW Std Deviation 47.4 fL (35.1-43.9) H 12/10/20 03:27 Plt Count 190 K/mm3 (163-337) D 12/10/20 03:27 MPV 10.3 fl (9.4-12.3) 12/10/20 03:27 Neut % (Auto) 59.2 % (34.0-67.9) 12/10/20 03: Lymph % (Auto) 28.5 % (21.8-53.1) 12/10/20 03: [place] % (Auto) 8.4 % (5.3-12.2) 12/10/20 03:27 Eos % (Auto) 3.2 (0.8-7.0) 12/10/20 03:27 Baso % (Auto) 0.5 % (0.1-1.2) 12/10/20 03:27 Neut # (Auto) 3.90 K/mm3 (1.78-5.38) 12/10/20 03:27 Lymph # (Auto) 1.87 K/mm3 (1.32-3.57) 12/10/20 03:27 [place] # (Auto) 0.55 K/mm3 (0.30-0.82) 12/10/20 03:27 Eos # (Auto) 0.21 K/mm3 (0.04-0.54) 12/10/20 03:27 Baso # (Auto) 0.03 K/mm3 (0.01-0.08) 12/10/20 03:27 PT 10.4 SECONDS (9.7-12.0) 12/10/20 03:27 INR 0.93 12/10/20 03:27 APTT 23.4 SECONDS (21.7-31.4) 12/10/20 03:27 Sodium 145 mEq/L (136-145) 12/10/20 03:27 Potassium 3.6 mEq/L (3.5-5.1) 12/10/20 03:27 Chloride 109 mEq/L (98-107) H 12/10/20 03:27 Carbon Dioxide 30 mEq/L (21-32) 12/10/20 03:27 Anion Gap 9.6 (5-15) 12/10/20 03:27 BUN 13 mg/dL (7-18) 12/10/20 03:27 Creatinine 0.7 mg/dL (0.7-1.3) 12/10/20 03:27 Est Cr Clr Drug Dosing 84.14 mL/min 12/10/20 03:27 Estimated GFR (MDRD) > 60 mL/min (>60) 12/10/20 03:27 BUN/Creatinine Ratio 18.6 (14-18) H 12/10/20 03:27 Glucose 99 mg/dL (70-99) 12/10/20 03:27 Calcium 8.3 mg/dL (8.5-10.1) L 12/10/20 03:27 Magnesium 1.8 mg/dL (1.8-2.4) 12/10/20 03:27 Total Bilirubin 0.5 mg/dL (0.2-1.0) 12/10/20 03:27 AST 9 U/L (15-37) L 12/10/20 03:27 ALT 16 U/L (16-63) 12/10/20 03:27 Alkaline Phosphatase 51 U/L (46-116) 12/10/20 03:27 Troponin I < 0.017 ng/mL (0.00-0.056) 12/09/20 10:55 C-Reactive Protein <0.2 mg/dL (<1.0) 12/09/20 10:55 NT-Pro-B Natriuret Pep 265 pg/mL (0-450) 12/09/20 10:55 Total Protein 5.5 g/dl (6.4-8.2) L 12/10/20 03:27 Albumin 3.0 g/dl (3.4-5.0) L 12/10/20 03:27 Globulin 2.5 gm/dL 12/10/20 03:27 Albumin/Globulin Ratio 1.2 (1-2) 12/10/20 03:27 TSH 3rd Generation 1.545 uIU/mL (0.358-3.74) 12/09/20 10:55 Urine Color Yellow (Yellow) 12/09/20 10:46 Urine Appearance Clear (Clear) 12/09/20 10:46 Urine pH 6.0 (5.0-8.0) 12/09/20 10:46 Ur Specific [place] 1.025 (1.005-1.030) 12/09/20 10:46 Urine Protein Trace (Negative) H 12/09/20 10:46 Urine Glucose (UA) Negative (Negative) 12/09/20 10:46 Urine Ketones Negative (Negative) 12/09/20 10:46 Urine Occult Blood Negative (Negative) 12/09/20 10:46 Urine Nitrite Negative (Negative) 12/09/20 10:46 Urine Bilirubin Negative (Negative) 12/09/20 10:46 Urine Urobilinogen 0.2 (0.2-1.0) 12/09/20 10:46 Ur Leukocyte Esterase Negative (Negative) 12/09/20 10:46 Urine RBC 0-5 /hpf (0-5) 12/09/20 10:46 Urine WBC 0-5 /hpf (0-5) 12/09/20 10:46 Ur Squamous Epith Cells 0-5 /hpf (0-5) 12/09/20 10:46 Urine Bacteria Few /hpf (FEW) 12/09/20 10:46 Urine Mucus Not seen /hpf (FEW) 12/09/20 10:46 SARS-CoV-2 RNA (MILO) Negative (NEGATIVE) 12/09/20 11:05 Blood Type O NEGATIVE 12/09/20 10:55 Gel Antibody Screen Negative 12/09/20 10:55 Crossmatch See Detail 12/09/20 10:55 Crossmatch See Detail 12/09/20 10:55 Above labs reviewed and noted and within acceptable ranges to proceed with scheduled procedure. - Allergies Allergies/Adverse Reactions: Allergies Allergy/AdvReac Type Severity Reaction Status Date / Time No Known Allergies Allergy Verified 12/09/20 15:56 - Anesthesia Plan Pre-Op Medication Ordered: None, Other (Albuterol nebulizer pre procedure.) - Acknowledgements Anesthesia Type Planned: MAC (Gentle light MAC) Pt an Appropriate Candidate for the Planned Anesthesia: Yes Alternatives and Risks of Anesthesia Discussed w Pt/Guardian: Yes Pt/Guardian Understands and Agrees with Anesthesia Plan: Yes PreAnesthesia Questionnaire HEENT History: Reports: Impaired Vision Other HEENT History: septoplasty Cardiovascular History: Reports: High Cholesterol, Hypertension Respiratory History: Reports: COPD, SOB Gastrointestinal History: Reports: Diverticulosis, Other (See Below) Other Gastrointestinal History: Diverticulitis. Musculoskeletal History: Reports: Back Pain, Chronic, Osteoporosis Psychiatric History: Reports: Anxiety, Depression Endocrine/Metabolic History: Reports: Hypothyroidism - Infectious Disease History Infectious Disease History: Reports: Chicken Pox, Measles - SUBSTANCE USE Tobacco Use Status *Q: Current Every Day Tobacco User Tobacco Use Within Last Twelve Months: Cigarettes Second Hand Smoke Exposure: No Recreational Drug Use History: Yes Recreational Drug Type: Reports: Marijuana/Hashish Recreational Drug Last Use: Couple times a day - HOME MEDS Home Medications: Home Meds Doxycycline [Vibra-Tabs] 100 mg PO BID #14 tablet 12/05/20 [Rx] Acetaminophen 1,000 mg PO TID PRN 12/09/20 [History] Albuterol [Proventil HFA] 2 puff INH QID PRN 12/09/20 [History] Albuterol [Proventil Neb Soln] 2.5 mg INH QID PRN 12/09/20 [History] Ascorbic Acid 1,000 mg PO DAILY 12/09/20 [History] Budesonide/Formoterol [Symbicort 160-4.5 MCG] 2 puff INH BID 12/09/20 [History] Calcium Carbonate [Tums] 500 mg CHEW QID PRN 12/09/20 [History] Calcium Carbonate/Vitamin D3 [Calcium 600Mg-D3 400 Unit Sfgl] 1 tab PO BID 12/09/20 [History] Cannabidiol (Cbd) Extract [CBD Oil] 1 dose PO ASDIRECTED PRN 12/09/20 [History] Cholecalciferol (Vitamin D3) [D3-2000] 250 mcg PO DAILY 12/09/20 [History] Ferrous Gluconate 324 mg PO Q48H 12/09/20 [History] Fluticasone Propionate [Flonase Allergy Relief] 2 sprays NASBOTH DAILY 12/09/20 [History] LORazepam [Ativan] 0.5 mg PO DAILY PRN 12/09/20 [History] Levothyroxine Sodium [Levoxyl] 100 mcg PO ACBREAKFAST 12/09/20 [History] Lidocaine 5% [Lidoderm 5%] 700 mg TOP DAILY 12/09/20 [History] Loratadine [Claritin] 10 mg PO DAILY PRN 12/09/20 [History] Melatonin 9 mg PO BEDTIME 12/09/20 [History] Meloxicam 15 mg PO QPM 12/09/20 [History] Menthol [Icy Hot] 1 patch TOP DAILY PRN 12/09/20 [History] Multivit with Iron,Minerals [Complete Senior] 1 tab PO DAILY 12/09/20 [History] [place]-3 Fatty Acids/Fish Oil [Fish Oil 1,000 mg Capsule] 1 cap PO DAILY 12/09/20 [History] Omeprazole 20 mg PO QPM 12/09/20 [History] Tiotropium [place] [Spiriva Respimat] 2 puff INH DAILY 12/09/20 [History] Zinc Sulfate 50 mg PO DAILY 12/09/20 [History] guaiFENesin [Guaifenesin] 400 mg PO TID PRN 12/09/20 [History] lisinopriL [Zestril] 40 mg PO DAILY 12/09/20 [History] polyethylene glycoL 3350 [Polyethylene Glycol 3350] 17 gm PO DAILY PRN 12/09/20 [History] - CURRENT (IN HOUSE) MEDS Current Meds: Current Medications Acetaminophen (Acetaminophen 325 Mg Tab) 650 mg PO Q4H PRN PRN Reason: Pain (Mild 1-3)/fever Last Admin: 12/09/20 21:11 Dose: 650 mg Documented by: Albuterol (Albuterol 0.083% 2.5 Mg/3 Ml Neb Soln) 2.5 mg NEB Q2H PRN PRN Reason: Shortness Of Breath/wheezing Last Admin: 12/09/20 18:49 Dose: 2.5 mg Documented by: Albuterol (Albuterol 6.7 Gm Inhaler) 0 gm INH QID PRN PRN Reason: Shortness of Breath Last Admin: 12/10/20 06:08 Dose: 2 inhalation Documented by: Albuterol (Albuterol 0.083% 2.5 Mg/3 Ml Neb Soln) 2.5 mg INH QID PRN PRN Reason: Shortness of Breath Albuterol/Ipratropium (Albuterol/Ipratropium 3.0-0.5 Mg/3 Ml Neb Soln) 3 ml NEB Q4H PRN PRN Reason: Shortness Of Breath/wheezing Calcium Carbonate/Glycine (Calcium Carbonate 500 Mg Tab.Chew) 0 mg CHEW QID PRN PRN Reason: Other Guaifenesin (Guaifenesin 600 Mg Tab.Er) 600 mg PO BID [facility] Last Admin: 12/09/20 21:57 Dose: 600 mg Documented by: Loratadine (Loratadine 10 Mg Tab) 10 mg PO DAILY PRN PRN Reason: Allergies Lorazepam (Lorazepam 0.5 Mg Tab) 0.5 mg PO DAILY PRN PRN Reason: Other Melatonin (Melatonin 3 Mg Tab) 9 mg PO BEDTIME [facility] Mometasone Furoate/Formoterol Fumar (Formoterol/Mometasone 200-5 Mcg 8.8 Gm Inhaler) 2 puff IH BIDRT [facility] Last Admin: 12/10/20 06:08 Dose: 2 inhalation Documented by: Ondansetron HCl (Ondansetron 4 Mg/2 Ml Sdv) 4 mg IV Q6H PRN PRN Reason: Nausea/Vomiting Last Admin: 12/10/20 07:36 Dose: 4 mg Documented by: Sodium Chloride (Sodium Chloride 0.9% 10 Ml Syringe) 10 ml FLUSH ONETIME PRN PRN Reason: IV FLUSH Last Admin: 12/09/20 11:25 Dose: 10 ml Documented by: Tiotropium [place] (Tiotropium [place] 4 Gm Inhalation Alpine (2.5mcg/1 Dose; 10 Doses)) 0 gm INH DAILY [facility] Discontinued Medications Albuterol/Ipratropium (Albuterol/Ipratropium 3.0-0.5 Mg/3 Ml Neb Soln) 3 ml NEB ONETIME ONE Stop: 12/09/20 11:02 Last Admin: 12/09/20 11:40 Dose: 3 ml Documented by: Enoxaparin Sodium (Enoxaparin 40 Mg/0.4 Ml Syringe) 40 mg SUBCUT DAILY [facility] Sodium Chloride (Normal Saline) 1,000 mls @ 150 mls/hr IV NOW STA Stop: 12/09/20 17:28 Last Infusion: 12/09/20 14:44 Dose: 0 mls/hr Documented by: Sodium Chloride (Normal Saline) 150 mls @ 100 mls/hr IV ASDIRECTED ONE Stop: 12/10/20 00:44 Last Admin: 12/09/20 23:46 Dose: 100 mls/hr Documented by: Sodium Chloride (Normal Saline) Confirm Administered Dose 100 mls @ as directed .ROUTE .STK-MED ONE Stop: 12/10/20 00:01 Last Admin: 12/10/20 02:15 Dose: Not Given Documented by: Iopamidol (Iopamidol 612 Mg/Ml 100 Ml Bottle) 100 ml IVPUSH ONETIME ONE Stop: 12/09/20 11:05 Last Admin: 12/09/20 11:25 Dose: 100 ml Documented by: Mometasone Furoate/Formoterol Fumar (Formoterol/Mometasone 200-5 Mcg 8.8 Gm Inhaler) 2 puff IH BIDRT DIAZ Ondansetron HCl (Ondansetron 4 Mg/2 Ml Sdv) 4 mg IVPUSH ONETIME ONE Stop: 12/09/20 11:02 Last Admin: 12/09/20 11:35 Dose: 4 mg Documented by: Polyethylene Glycol/Electrolytes (Polyethylene Glycol/Electrolytes 4,000 Ml Bottle) 4,000 ml PO ONETIME ONE Stop: 12/09/20 21:33 Last Admin: 12/09/20 21:57 Dose: 4,000 ml Documented by: Prednisone (Prednisone 20 Mg Tab) 40 mg PO ONETIME ONE Stop: 12/09/20 15:08 Last Admin: 12/09/20 15:36 Dose: Not Given Documented by: Sodium Chloride (Sodium Chloride 0.9% 10 Ml Syringe) 10 ml FLUSH ASDIRECTED PRN PRN Reason: Keep Vein Open Last Admin: 12/09/20 11:46 Dose: 10 ml Documented by:
[2020-12-10] MEDS ORDERED: fentaNYL 100 MCG/2 ML SDV ONE (08:31)
[2020-12-10] MEDS ORDERED: Propofol 200 MG/20 ML SDV ONE ×2 (08:31→09:47)
[2020-12-10] MEDS ORDERED: Midazolam 1 MG/ML 2 ML SDV ONE (08:32)
[2020-12-10] MEDS ORDERED: Lidocaine 1% 4 ML ONE (08:32)
[2020-12-10] MEDS: Albuterol 0.083% 2.5 MG/3 ML Neb Soln NEB PRN (08:58)
[2020-12-10] MEDS: Tiotropium Bromide 4 GM Inhalation Spray (2.5mcg/1 dose; 10 doses) INH SCH (08:59)
[2020-12-10] MEDS ORDERED: Enoxaparin 40 MG/0.4 ML Syringe SUBCUT SCH (09:00)
[2020-12-10] MEDS ORDERED: Lactated Ringers 1,000 ML ONE (09:34)
--- NOTE | 2020-12-10 10:14 | PCM48HPAN ---
Post Anesthesia Note - EVALUATION WITHIN 48HRS OF ANESTHETIC Vital Signs in Normal Range: Yes Patient Participated in Evaluation: Yes Respiratory Function Stable: Yes Airway Patent: Yes Cardiovascular Function Stable: Yes Hydration Status Stable: Yes Pain Control Satisfactory: Yes Nausea and Vomiting Control Satisfactory: Yes Mental Status Recovered: Yes Vital Signs: Last Vital Signs Temp 98.1 F 12/10/20 02:19 Pulse 74 12/10/20 02:19 Resp 20 12/10/20 02:19 BP 167/83 H 12/10/20 02:19 Pulse Ox 100 12/10/20 08:59 Vital signs at 1003: BP 113/88 HR 71 RR 18 Sats 100% 3 L 97.8
[2020-12-10] MEDS: guaiFENesin 600 MG Tab.ER PO SCH ×2 (11:23→21:05)
--- NOTE | 2020-12-10 11:41 | PCM.PRNOTE ---
- Free Text/Narrative Note: Date: 12/10/2020 Procedure: diagnostic esophagogastroduodenoscopy and colonoscopy History: GI bleed, history of GERD and diverticulosis, last colonoscopy was 5 years ago with 6-7 polyps removed Endoscopist: Constantino Blanco MD Findings: mild inflammatory change of the mid-stomach with no evidence of blood or ulcer. Bowel prep was adequate. No sign of blood. Extensive diverticular disease. At about the 70 cm bib, it was difficult to sufficiently insufflate the colon for safe navigation, and given that there was no evidence of active hemorrhage in the colon and advanced diverticulosis, further attempts to advance to the cecum were deemed risky and unnecessary. Detailed Report: The patient was taken to the endoscopy suite and placed in left lateral decubitus position. Time out was performed and monitored anesthesia care initiated. A bite block was placed. The endoscope was inserted into the mouth and advanced to the duodenum. No blood was noted and no ulcers or tumors identified. There was the appearance of mild inflammation of the mid stomach along the greater curve. No hiatal hernia was noted and the esophagus appeared normal. Air was suctioned from the stomach and the scope was withdrawn. Next, colonoscopy was performed. The anus appeared normal. posterior cicatrix palpable in anal canal. No hemorrhoids noted. The colonoscope was inserted and advanced to about the level of the splenic flexure. Navigation with the scope was challenging due redundancy of the colon and due to extensive advanced sanches- diverticulosis. The bowel prep was adequate and there was no sign of active or prior hemorrhage. No polyps were visualized. At about the 70 cm bib, I could not distend the lumen with air insufflation sufficiently to safely navigate proximally. I worked on advancing the scope at this site for about 10 minutes. Given the patient's frailty and advanced COPD and challenge with advancing the scope, it seemed unsafe and unnecessary to try to reach the cecum. Air was suctioned from the colon as the scope was withdrawn. The patient tolerated the procedure well.
[2020-12-10] MEDS: Albuterol/Ipratropium 3.0-0.5 MG/3 ML Neb Soln NEB PRN ×2 (12:57→20:11)
--- NOTE | 2020-12-10 15:00 | PCM.PN ---
- General Info Date of Service: 12/10/20 Admission Dx/Problem (Free Text): Admission Diagnosis/Problem Admission Diagnosis/Problem GI bleed not requiring more than 4 units of blood in 24 hours, ICU, or surgery Subjective Update: Patient's hemoglobin continued to drop yesterday afternoon and overnight. He continued to have at least one more bloody bowel movement. Because of the active bleeding in decrease of his hemoglobin down to 7.2 he was given 1 unit packed red blood cells. He had undergone endoscopy this morning and it did not show any active bleeding, but did show multiple diverticula. This is the likely source of his bleed. Following procedure he did have some complaints of shortness of breath. Respiratory therapy was contacted for treatment. Functional Status: Reports: Pain Controlled - Review of Systems General: Reports: Fatigue HEENT: Reports: No Symptoms Pulmonary: Reports: Shortness of Breath, Cough Cardiovascular: Reports: No Symptoms Gastrointestinal: Reports: No Symptoms Neurological: Reports: No Symptoms Psychiatric: Reports: Depression - Patient Data Vitals - Most Recent: Last Vital Signs Temp 97.9 F 12/10/20 10:06 Pulse 71 12/10/20 11:17 Resp 20 12/10/20 10:06 BP 143/62 H 12/10/20 11:17 Pulse Ox 97 12/10/20 12:59 Weight - Most Recent: 171 lb 3.2 oz I&O - Last 24 Hours: Intake & Output 12/09/20 12/10/20 12/10/20 22:59 06:59 14:59 Intake Total 175 4520 Output Total 1804 Balance 175 2716 Lab Results Last 24 Hours: Laboratory Results - last 24 hr 12/09/20 12/09/20 12/09/20 Range/Units 10:55 10:55 10:55 WBC (4.23-9.07) K/mm3 RBC (4.63-6.08) M/mm3 Hgb (13.7-17.5) gm/dl Hct (40.1-51.0) % MCV (79.0-92.2) fl MCH (25.7-32.2) pg MCHC (32.2-35.5) g/dl RDW Std Deviation (35.1-43.9) fL Plt Count (163-337) K/mm3 MPV (9.4-12.3) fl Neut % (Auto) (34.0-67.9) % Lymph % (Auto) (21.8-53.1) % [place] % (Auto) (5.3-12.2) % Eos % (Auto) (0.8-7.0) Baso % (Auto) (0.1-1.2) % Neut # (Auto) (1.78-5.38) K/mm3 Lymph # (Auto) (1.32-3.57) K/mm3 [place] # (Auto) (0.30-0.82) K/mm3 Eos # (Auto) (0.04-0.54) K/mm3 Baso # (Auto) (0.01-0.08) K/mm3 PT (9.7-12.0) SECONDS INR APTT (21.7-31.4) SECONDS Sodium (136-145) mEq/L Potassium (3.5-5.1) mEq/L Chloride (98-107) mEq/L Carbon Dioxide (21-32) mEq/L Anion Gap (5-15) BUN (7-18) mg/dL Creatinine (0.7-1.3) mg/dL Est Cr Clr Drug Dosing mL/min Estimated GFR (MDRD) (>60) mL/min BUN/Creatinine Ratio (14-18) Glucose (70-99) mg/dL Calcium (8.5-10.1) mg/dL Magnesium (1.8-2.4) mg/dL Total Bilirubin (0.2-1.0) mg/dL AST (15-37) U/L ALT (16-63) U/L Alkaline Phosphatase (46-116) U/L Total Protein (6.4-8.2) g/dl Albumin (3.4-5.0) g/dl Globulin gm/dL Albumin/Globulin Ratio (1-2) TSH 3rd Generation 1.545 (0.358-3.74) uIU/mL Blood Type O NEGATIVE Gel Antibody Screen Negative Crossmatch See Detail See Detail 12/09/20 12/09/20 12/10/20 Range/Units 15:59 21:06 03:27 WBC 6.57 (4.23-9.07) K/mm3 RBC 2.81 L (4.63-6.08) M/mm3 Hgb 8.7 L 7.2 L* D 8.5 L (13.7-17.5) gm/dl Hct 27.9 L 23.7 L 27.3 L (40.1-51.0) % MCV 97.2 H (79.0-92.2) fl MCH 30.2 (25.7-32.2) pg MCHC 31.1 L (32.2-35.5) g/dl RDW Std Deviation 47.4 H (35.1-43.9) fL Plt Count 190 D (163-337) K/mm3 MPV 10.3 (9.4-12.3) fl Neut % (Auto) 59.2 (34.0-67.9) % Lymph % (Auto) 28.5 (21.8-53.1) % [place] % (Auto) 8.4 (5.3-12.2) % Eos % (Auto) 3.2 (0.8-7.0) Baso % (Auto) 0.5 (0.1-1.2) % Neut # (Auto) 3.90 (1.78-5.38) K/mm3 Lymph # (Auto) 1.87 (1.32-3.57) K/mm3 [place] # (Auto) 0.55 (0.30-0.82) K/mm3 Eos # (Auto) 0.21 (0.04-0.54) K/mm3 Baso # (Auto) 0.03 (0.01-0.08) K/mm3 PT (9.7-12.0) SECONDS INR APTT (21.7-31.4) SECONDS Sodium (136-145) mEq/L Potassium (3.5-5.1) mEq/L Chloride (98-107) mEq/L Carbon Dioxide (21-32) mEq/L Anion Gap (5-15) BUN (7-18) mg/dL Creatinine (0.7-1.3) mg/dL Est Cr Clr Drug Dosing mL/min Estimated GFR (MDRD) (>60) mL/min BUN/Creatinine Ratio (14-18) Glucose (70-99) mg/dL Calcium (8.5-10.1) mg/dL Magnesium (1.8-2.4) mg/dL Total Bilirubin (0.2-1.0) mg/dL AST (15-37) U/L ALT (16-63) U/L Alkaline Phosphatase (46-116) U/L Total Protein (6.4-8.2) g/dl Albumin (3.4-5.0) g/dl Globulin gm/dL Albumin/Globulin Ratio (1-2) TSH 3rd Generation (0.358-3.74) uIU/mL Blood Type Gel Antibody Screen Crossmatch 12/10/20 12/10/20 Range/Units 03:27 03:27 WBC (4.23-9.07) K/mm3 RBC (4.63-6.08) M/mm3 Hgb (13.7-17.5) gm/dl Hct (40.1-51.0) % MCV (79.0-92.2) fl MCH (25.7-32.2) pg MCHC (32.2-35.5) g/dl RDW Std Deviation (35.1-43.9) fL Plt Count (163-337) K/mm3 MPV (9.4-12.3) fl Neut % (Auto) (34.0-67.9) % Lymph % (Auto) (21.8-53.1) % [place] % (Auto) (5.3-12.2) % Eos % (Auto) (0.8-7.0) Baso % (Auto) (0.1-1.2) % Neut # (Auto) (1.78-5.38) K/mm3 Lymph # (Auto) (1.32-3.57) K/mm3 [place] # (Auto) (0.30-0.82) K/mm3 Eos # (Auto) (0.04-0.54) K/mm3 Baso # (Auto) (0.01-0.08) K/mm3 PT 10.4 (9.7-12.0) SECONDS INR 0.93 APTT 23.4 (21.7-31.4) SECONDS Sodium 145 (136-145) mEq/L Potassium 3.6 (3.5-5.1) mEq/L Chloride 109 H (98-107) mEq/L Carbon Dioxide 30 (21-32) mEq/L Anion Gap 9.6 (5-15) BUN 13 (7-18) mg/dL Creatinine 0.7 (0.7-1.3) mg/dL Est Cr Clr Drug Dosing 84.14 mL/min Estimated GFR (MDRD) > 60 (>60) mL/min BUN/Creatinine Ratio 18.6 H (14-18) Glucose 99 (70-99) mg/dL Calcium 8.3 L (8.5-10.1) mg/dL Magnesium 1.8 (1.8-2.4) mg/dL Total Bilirubin 0.5 (0.2-1.0) mg/dL AST 9 L (15-37) U/L ALT 16 (16-63) U/L Alkaline Phosphatase 51 (46-116) U/L Total Protein 5.5 L (6.4-8.2) g/dl Albumin 3.0 L (3.4-5.0) g/dl Globulin 2.5 gm/dL Albumin/Globulin Ratio 1.2 (1-2) TSH 3rd Generation (0.358-3.74) uIU/mL Blood Type Gel Antibody Screen Crossmatch Med Orders - Current: Current Medications Acetaminophen (Acetaminophen 325 Mg Tab) 650 mg PO Q4H PRN PRN Reason: Pain (Mild 1-3)/fever Last Admin: 12/09/20 21:11 Dose: 650 mg Documented by: Albuterol (Albuterol 0.083% 2.5 Mg/3 Ml Neb Soln) 2.5 mg NEB Q2H PRN PRN Reason: Shortness Of Breath/wheezing Last Admin: 12/10/20 08:58 Dose: 2.5 mg Documented by: Albuterol (Albuterol 6.7 Gm Inhaler) 0 gm INH QID PRN PRN Reason: Shortness of Breath Last Admin: 12/10/20 11:42 Dose: 2 inhalation Documented by: Albuterol/Ipratropium (Albuterol/Ipratropium 3.0-0.5 Mg/3 Ml Neb Soln) 3 ml NEB Q4H PRN PRN Reason: Shortness Of Breath/wheezing Last Admin: 12/10/20 12:57 Dose: 3 ml Documented by: Calcium Carbonate/Glycine (Calcium Carbonate 500 Mg Tab.Chew) 0 mg CHEW QID PRN PRN Reason: Other Guaifenesin (Guaifenesin 600 Mg Tab.Er) 600 mg PO BID DIAZ Last Admin: 12/10/20 11:23 Dose: 600 mg Documented by: Influenza Virus Vaccine (Flu Vacc [id number](65up)/Mf59c/Pf 60 Mcg/0.5 Ml Syringe) 60 mcg IM .ONCE ONE Stop: 12/11/20 12:01 Loratadine (Loratadine 10 Mg Tab) 10 mg PO DAILY PRN PRN Reason: Allergies Lorazepam (Lorazepam 0.5 Mg Tab) 0.5 mg PO DAILY PRN PRN Reason: Other Melatonin (Melatonin 3 Mg Tab) 9 mg PO BEDTIME [facility] Mometasone Furoate/Formoterol Fumar (Formoterol/Mometasone 200-5 Mcg 8.8 Gm Inhaler) 2 puff IH BIDRT [facility] Last Admin: 12/10/20 06:08 Dose: 2 inhalation Documented by: Ondansetron HCl (Ondansetron 4 Mg/2 Ml Sdv) 4 mg IV Q6H PRN PRN Reason: Nausea/Vomiting Last Admin: 12/10/20 07:36 Dose: 4 mg Documented by: Sodium Chloride (Sodium Chloride 0.9% 10 Ml Syringe) 10 ml FLUSH ONETIME PRN PRN Reason: IV FLUSH Last Admin: 12/09/20 11:25 Dose: 10 ml Documented by: Tiotropium Clare (Tiotropium Clare 4 Gm Inhalation [place] (2.5mcg/1 Dose; 10 Doses)) 0 gm INH DAILY [facility] Last Admin: 12/10/20 08:59 Dose: 2 dose Documented by: Discontinued Medications Albuterol (Albuterol 0.083% 2.5 Mg/3 Ml Neb Soln) 2.5 mg INH QID PRN PRN Reason: Shortness of Breath Albuterol/Ipratropium (Albuterol/Ipratropium 3.0-0.5 Mg/3 Ml Neb Soln) 3 ml NEB ONETIME ONE Stop: 12/09/20 11:02 Last Admin: 12/09/20 11:40 Dose: 3 ml Documented by: Enoxaparin Sodium (Enoxaparin 40 Mg/0.4 Ml Syringe) 40 mg SUBCUT DAILY [facility] Fentanyl (Fentanyl 100 Mcg/2 Ml Sdv) Confirm Administered Dose 100 mcg .ROUTE .STK-MED ONE Stop: 12/10/20 08:32 Sodium Chloride (Normal Saline) 1,000 mls @ 150 mls/hr IV NOW STA Stop: 12/09/20 17:28 Last Infusion: 12/09/20 14:44 Dose: 0 mls/hr Documented by: Sodium Chloride (Normal Saline) 150 mls @ 100 mls/hr IV ASDIRECTED ONE Stop: 12/10/20 00:44 Last Admin: 12/09/20 23:46 Dose: 100 mls/hr Documented by: Sodium Chloride (Normal Saline) Confirm Administered Dose 100 mls @ as directed .ROUTE .STK-MED ONE Stop: 12/10/20 00:01 Last Admin: 12/10/20 02:15 Dose: Not Given Documented by: Lidocaine HCl (Xylocaine-Mpf 1%) Confirm Administered Dose 4 mls @ as directed .ROUTE .STK-MED ONE Stop: 12/10/20 08:33 Lactated Ringer's (Ringers, Lactated) Confirm Administered Dose 1,000 mls @ as directed .ROUTE .STK-MED ONE Stop: 12/10/20 09:35 Iopamidol (Iopamidol 612 Mg/Ml 100 Ml Bottle) 100 ml IVPUSH ONETIME ONE Stop: 12/09/20 11:05 Last Admin: 12/09/20 11:25 Dose: 100 ml Documented by: Midazolam HCl (Midazolam 1 Mg/Ml 2 Ml Sdv) Confirm Administered Dose 2 mg .ROUTE .STK-MED ONE Stop: 12/10/20 08:33 Mometasone Furoate/Formoterol Fumar (Formoterol/Mometasone 200-5 Mcg 8.8 Gm Inhaler) 2 puff IH BIDRT DIAZ Ondansetron HCl (Ondansetron 4 Mg/2 Ml Sdv) 4 mg IVPUSH ONETIME ONE Stop: 12/09/20 11:02 Last Admin: 12/09/20 11:35 Dose: 4 mg Documented by: Polyethylene Glycol/Electrolytes (Polyethylene Glycol/Electrolytes 4,000 Ml Bottle) 4,000 ml PO ONETIME ONE Stop: 12/09/20 21:33 Last Admin: 12/09/20 21:57 Dose: 4,000 ml Documented by: Prednisone (Prednisone 20 Mg Tab) 40 mg PO ONETIME ONE Stop: 12/09/20 15:08 Last Admin: 12/09/20 15:36 Dose: Not Given Documented by: Propofol (Propofol 200 Mg/20 Ml Sdv) Confirm Administered Dose 200 mg .ROUTE .STK-MED ONE Stop: 12/10/20 08:32 Propofol (Propofol 200 Mg/20 Ml Sdv) Confirm Administered Dose 200 mg .ROUTE .STK-MED ONE Stop: 12/10/20 09:48 Sodium Chloride (Sodium Chloride 0.9% 10 Ml Syringe) 10 ml FLUSH ASDIRECTED PRN PRN Reason: Keep Vein Open Last Admin: 12/09/20 11:46 Dose: 10 ml Documented by: - Exam Quality Assessment: Supplemental Oxygen General: Alert, Oriented HEENT: Pupils Equal, Mucous Membr. Moist/[place] Neck: Supple Lungs: Decreased Breath Sounds, Wheezing. No: Normal Respiratory Effort (Increased respiratory rate and effort) Cardiovascular: Regular Rate, Regular Rhythm GI/Abdominal Exam: Normal Bowel Sounds, Soft, Non-Tender, No Distention Extremities: Normal Inspection, Normal Range of Motion, No Pedal Edema, Normal Capillary Refill Skin: Warm, Dry, Intact Psy/Mental Status: Alert, Normal Affect, Normal Mood - Patient Data Lab Results Last 24 hrs: Laboratory Results - last 24 hr 12/09/20 12/09/20 12/09/20 Range/Units 10:55 10:55 10:55 WBC (4.23-9.07) K/mm3 RBC (4.63-6.08) M/mm3 Hgb (13.7-17.5) gm/dl Hct (40.1-51.0) % MCV (79.0-92.2) fl MCH (25.7-32.2) pg MCHC (32.2-35.5) g/dl RDW Std Deviation (35.1-43.9) fL Plt Count (163-337) K/mm3 MPV (9.4-12.3) fl Neut % (Auto) (34.0-67.9) % Lymph % (Auto) (21.8-53.1) % [place] % (Auto) (5.3-12.2) % Eos % (Auto) (0.8-7.0) Baso % (Auto) (0.1-1.2) % Neut # (Auto) (1.78-5.38) K/mm3 Lymph # (Auto) (1.32-3.57) K/mm3 [place] # (Auto) (0.30-0.82) K/mm3 Eos # (Auto) (0.04-0.54) K/mm3 Baso # (Auto) (0.01-0.08) K/mm3 PT (9.7-12.0) SECONDS INR APTT (21.7-31.4) SECONDS Sodium (136-145) mEq/L Potassium (3.5-5.1) mEq/L Chloride (98-107) mEq/L Carbon Dioxide (21-32) mEq/L Anion Gap (5-15) BUN (7-18) mg/dL Creatinine (0.7-1.3) mg/dL Est Cr Clr Drug Dosing mL/min Estimated GFR (MDRD) (>60) mL/min BUN/Creatinine Ratio (14-18) Glucose (70-99) mg/dL Calcium (8.5-10.1) mg/dL Magnesium (1.8-2.4) mg/dL Total Bilirubin (0.2-1.0) mg/dL AST (15-37) U/L ALT (16-63) U/L Alkaline Phosphatase (46-116) U/L Total Protein (6.4-8.2) g/dl Albumin (3.4-5.0) g/dl Globulin gm/dL Albumin/Globulin Ratio (1-2) TSH 3rd Generation 1.545 (0.358-3.74) uIU/mL Blood Type O NEGATIVE Gel Antibody Screen Negative Crossmatch See Detail See Detail 12/09/20 12/09/20 12/10/20 Range/Units 15:59 21:06 03:27 WBC 6.57 (4.23-9.07) K/mm3 RBC 2.81 L (4.63-6.08) M/mm3 Hgb 8.7 L 7.2 L* D 8.5 L (13.7-17.5) gm/dl Hct 27.9 L 23.7 L 27.3 L (40.1-51.0) % MCV 97.2 H (79.0-92.2) fl MCH 30.2 (25.7-32.2) pg MCHC 31.1 L (32.2-35.5) g/dl RDW Std Deviation 47.4 H (35.1-43.9) fL Plt Count 190 D (163-337) K/mm3 MPV 10.3 (9.4-12.3) fl Neut % (Auto) 59.2 (34.0-67.9) % Lymph % (Auto) 28.5 (21.8-53.1) % [place] % (Auto) 8.4 (5.3-12.2) % Eos % (Auto) 3.2 (0.8-7.0) Baso % (Auto) 0.5 (0.1-1.2) % Neut # (Auto) 3.90 (1.78-5.38) K/mm3 Lymph # (Auto) 1.87 (1.32-3.57) K/mm3 [place] # (Auto) 0.55 (0.30-0.82) K/mm3 Eos # (Auto) 0.21 (0.04-0.54) K/mm3 Baso # (Auto) 0.03 (0.01-0.08) K/mm3 PT (9.7-12.0) SECONDS INR APTT (21.7-31.4) SECONDS Sodium (136-145) mEq/L Potassium (3.5-5.1) mEq/L Chloride (98-107) mEq/L Carbon Dioxide (21-32) mEq/L Anion Gap (5-15) BUN (7-18) mg/dL Creatinine (0.7-1.3) mg/dL Est Cr Clr Drug Dosing mL/min Estimated GFR (MDRD) (>60) mL/min BUN/Creatinine Ratio (14-18) Glucose (70-99) mg/dL Calcium (8.5-10.1) mg/dL Magnesium (1.8-2.4) mg/dL Total Bilirubin (0.2-1.0) mg/dL AST (15-37) U/L ALT (16-63) U/L Alkaline Phosphatase (46-116) U/L Total Protein (6.4-8.2) g/dl Albumin (3.4-5.0) g/dl Globulin gm/dL Albumin/Globulin Ratio (1-2) TSH 3rd Generation (0.358-3.74) uIU/mL Blood Type Gel Antibody Screen Crossmatch 12/10/20 12/10/20 Range/Units 03:27 03:27 WBC (4.23-9.07) K/mm3 RBC (4.63-6.08) M/mm3 Hgb (13.7-17.5) gm/dl Hct (40.1-51.0) % MCV (79.0-92.2) fl MCH (25.7-32.2) pg MCHC (32.2-35.5) g/dl RDW Std Deviation (35.1-43.9) fL Plt Count (163-337) K/mm3 MPV (9.4-12.3) fl Neut % (Auto) (34.0-67.9) % Lymph % (Auto) (21.8-53.1) % [place] % (Auto) (5.3-12.2) % Eos % (Auto) (0.8-7.0) Baso % (Auto) (0.1-1.2) % Neut # (Auto) (1.78-5.38) K/mm3 Lymph # (Auto) (1.32-3.57) K/mm3 [place] # (Auto) (0.30-0.82) K/mm3 Eos # (Auto) (0.04-0.54) K/mm3 Baso # (Auto) (0.01-0.08) K/mm3 PT 10.4 (9.7-12.0) SECONDS INR 0.93 APTT 23.4 (21.7-31.4) SECONDS Sodium 145 (136-145) mEq/L Potassium 3.6 (3.5-5.1) mEq/L Chloride 109 H (98-107) mEq/L Carbon Dioxide 30 (21-32) mEq/L Anion Gap 9.6 (5-15) BUN 13 (7-18) mg/dL Creatinine 0.7 (0.7-1.3) mg/dL Est Cr Clr Drug Dosing 84.14 mL/min Estimated GFR (MDRD) > 60 (>60) mL/min BUN/Creatinine Ratio 18.6 H (14-18) Glucose 99 (70-99) mg/dL Calcium 8.3 L (8.5-10.1) mg/dL Magnesium 1.8 (1.8-2.4) mg/dL Total Bilirubin 0.5 (0.2-1.0) mg/dL AST 9 L (15-37) U/L ALT 16 (16-63) U/L Alkaline Phosphatase 51 (46-116) U/L Total Protein 5.5 L (6.4-8.2) g/dl Albumin 3.0 L (3.4-5.0) g/dl Globulin 2.5 gm/dL Albumin/Globulin Ratio 1.2 (1-2) TSH 3rd Generation (0.358-3.74) uIU/mL Blood Type Gel Antibody Screen Crossmatch Result Diagrams: 12/10/20 03:27 12/10/20 03:27 Sepsis Event Note - Evaluation Sepsis Screening Result: No Definite Risk - Focused Exam Vital Signs: Vital Signs Temp Pulse Resp BP Pulse Ox Pulse Ox 12/10/20 12:59 97 12/10/20 11:42 95 12/10/20 11:31 100 12/10/20 11:17 71 143/62 H 100 12/10/20 11:02 64 135/51 L 100 12/10/20 10:47 67 139/43 L 100 12/10/20 10:32 70 135/54 L 100 12/10/20 10:17 69 124/47 L 100 12/10/20 10:09 70 133/63 100 12/10/20 10:06 97.9 F 75 20 113/88 100 12/10/20 09:04 98.4 F 72 100 12/10/20 08:59 100 12/10/20 06:09 100 - Problem List & Annotations (1) COPD exacerbation SNOMED Code(s): 821778033 Code(s): J44.1 - CHRONIC OBSTRUCTIVE PULMONARY DISEASE W (ACUTE) EXACERBATION Status: Acute Priority: High Current Visit: No (2) GI bleed not requiring more than 4 units of blood in 24 hours, ICU, or surgery SNOMED Code(s): 08689715 Code(s): K92.2 - GASTROINTESTINAL HEMORRHAGE, UNSPECIFIED Status: Acute Priority: High Current Visit: No - Problem List Review Problem List Initiated/Reviewed/Updated: Yes - My Orders Last 24 Hours: My Active Orders 12/09/20 14:21 Oxygen Therapy [RC] PRN Up With Assistance [RC] DAILY VTE/DVT Education [RC] DAILY Vital Signs [RC] Q4H PT Evaluation and Treatment [CONS] Routine Acetaminophen [TylenoL] 650 mg PO Q4H PRN Albuterol [Proventil Neb Soln] 2.5 mg NEB Q2H PRN Albuterol/Ipratropium [DuoNeb 3.0-0.5 MG/3 ML] 3 ml NEB Q4H PRN Ondansetron [Zofran] 4 mg IV Q6H PRN Resuscitation Status Routine 12/09/20 15:27 Antiembolic Devices [RC] BID SCD [Sequential Compression Device] [OM.PC] Routine 12/09/20 15:28 Consult to Case Management/Asbestos Removal Supervisor [CONS] Routine 12/09/20 21:30 guaiFENesin [Mucinex] 600 mg PO BID 12/09/20 21:43 Transfuse Red Blood Cells [COMM] Routine 12/09/20 21:44 Verify Patient Consent Obtain [RC] ASDIRECTED 12/09/20 22:03 Albuterol [Proventil HFA] 0 gm INH QID PRN Calcium Carbonate [Tums] 0 mg CHEW QID PRN LORazepam [Ativan] 0.5 mg PO DAILY PRN Loratadine [Claritin] 10 mg PO DAILY PRN 12/09/20 22:06 RT Aerosol Therapy [RC] ASDIRECTED RT Post Treatment Assessment [RC] Click to Edit RT Pre-Treatment Assessment [RC] Click to Edit 12/10/20 00:39 Mometasone/Formoterol [Dulera 200-5 MCG] 2 puff IH BIDRT 12/10/20 08:03 Vaccine to be Administered/Admin Charge [RC] ASDIRECTED 12/10/20 09:00 Tiotropium Clare [Spiriva Respimat] 0 gm INH DAILY 12/10/20 Lunch Regular Diet [DIET] 12/10/20 11:35 RT Chest Physiotherapy [RC] ASDIRECTED RT Incentive Spirometry [RC] ASDIRECTED 12/10/20 21:00 Melatonin 9 mg PO BEDTIME 12/11/20 12:00 FLU Vacc [id number](65UP)/MF59C/PF [Fluad Quad [id number] SYRINGE] 60 mcg IM .ONCE ONE - Plan Plan:: 12/09/2020 Assessment: Jean-Claude is a 79yo white male admitted for observation secondary to bright red bloody diarrhea and low hemoglobin. PMH is significant for diverticulosis, and his clinical picture points to the diagnosis of acute colonic diverticular hemorrhage. Abdominal CT revealed diverticulosis of sigmoid and descending colon without sign of inflammation. General surgery was consulted and will perform endoscopy tomorrow if hemoglobin continues to drop. He is hemodynamically stable. He is also experiencing an acute exacerbation of COPD which was diagnosed in the ED 4 days ago. He has been taking doxycycline and prednisone for this. 12/10/2020 Panendoscopy today did not demonstrate any active bleeding. He did have multiple diverticuli which is likely the cause of his bleeding. We will continue to monitor his bowel movements and hemoglobin. Plan will be to discharge tomorrow as we advance his diet. Potassium is back to normal. volunteer services manager is discussing care and services with him today. Plan: GI bleed/diverticulosis * supplemental O2 as needed to maintain O2 saturation 92-95% - hyperoxygenation may reduce his respiratory drive secondary to severe COPD * repeat hgb/hct * Advance to full diet COPD with acute exacerbation * No antibiotics currently needed * Completed 5 days of prednisone * supplemental O2 as needed to maintain O2 saturation 92-95%. Home O2 is 3 L. Here on 3 L he has been at 100% so we are trying to wean him as appropriate. * sub Dulera for home Symbicort Hypokalemiaresolved * repeat CMP in a.m. Hypothyroidism * Levothyroxine 125mcg daily * TSH 1.55 Depression * follow-up with [place] psychiatry Asbestos Removal Supervisor Consultation VTE prophylaxis: SCDs Code status: DNR/DNI
[2020-12-10] MEDS: Pantoprazole 40 MG Tab.CR PO SCH (17:29)
[2020-12-10] MEDS: Doxycycline 100 MG Cap PO SCH (17:29)
[2020-12-10] MEDS: Levothyroxine 100 MCG Tab PO SCH (17:29)
[2020-12-10] MEDS ORDERED: Simethicone 80 MG Tab.Chew PO ONE (17:35)
[2020-12-10] MEDS: Melatonin 3 MG Tab PO SCH (21:05)
[2020-12-11] MEDS: Albuterol 0.083% 2.5 MG/3 ML Neb Soln NEB PRN (04:45)
[2020-12-11] MEDS: Acetaminophen 325 MG Tab PO PRN ×3 (04:50→16:00)
[2020-12-11] MEDS: Levothyroxine 100 MCG Tab PO SCH (05:23)
[2020-12-11] MEDS: Formoterol/Mometasone 200-5 MCG 8.8 GM Inhaler IH SCH ×2 (06:54→20:10)
[2020-12-11] MEDS ORDERED: Simethicone 80 MG Tab.Chew PO PRN (07:46)
[2020-12-11] MEDS: Albuterol 6.7 GM Inhaler INH PRN (07:59)
[2020-12-11] MEDS: Tiotropium Bromide 4 GM Inhalation Spray (2.5mcg/1 dose; 10 doses) INH SCH (07:59)
[2020-12-11] MEDS: Doxycycline 100 MG Cap PO SCH ×2 (08:56→20:36)
[2020-12-11] MEDS: guaiFENesin 600 MG Tab.ER PO SCH ×2 (08:56→20:36)
[2020-12-11] MEDS: Pantoprazole 40 MG Tab.CR PO SCH (08:58)
[2020-12-11] MEDS ORDERED: Nicotine 14 MG/24 Hr Patch TRDERM SCH (10:00)
[2020-12-11] MEDS: Nicotine 7 MG/24 Hr Patch TRDERM SCH (10:57)
[2020-12-11] MEDS: Lisinopril 20 MG Tab PO SCH (10:59)
[2020-12-11] MEDS ORDERED: FLU Vacc QS2021(65UP)/MF59C/PF 60 MCG/0.5 ML Syringe IM ONE (12:00)
[2020-12-11] MEDS: Albuterol/Ipratropium 3.0-0.5 MG/3 ML Neb Soln NEB PRN ×3 (12:16→20:10)
--- NOTE | 2020-12-11 13:16 | PCM.PN ---
- General Info Date of Service: 12/11/20 Admission Dx/Problem (Free Text): Admission Diagnosis/Problem Admission Diagnosis/Problem GI bleed not requiring more than 4 units of blood in 24 hours, ICU, or surgery Subjective Update: Patient's hemoglobin decreased to 8.0 overnight. No reported bloody stools. He states he feels weak and is unable to care for himself. He did have an over 2 g drop in his hemoglobin. Patient lives in an by himself and states he cannot live by himself at this time. career services coordinator last night gave him options for assisted living, but he cannot act on them this weekend. He also complains of air hunger although his oxygen saturations on 2 L are in the upper 90s and even as high as 100. This is down 1 L from his home oxygen use. - Review of Systems General: Reports: Fatigue HEENT: Reports: No Symptoms Pulmonary: Reports: Shortness of Breath Cardiovascular: Reports: No Symptoms Gastrointestinal: Reports: No Symptoms Musculoskeletal: Reports: No Symptoms - Patient Data Vitals - Most Recent: Last Vital Signs Temp 97.9 F 12/11/20 08:18 Pulse 74 12/11/20 08:18 Resp 19 12/11/20 08:18 BP 168/78 H 12/11/20 10:59 Pulse Ox 99 12/11/20 12:16 Weight - Most Recent: 171 lb 9.6 oz I&O - Last 24 Hours: Intake & Output 12/10/20 12/11/20 12/11/20 22:59 06:59 14:59 Intake Total 1125 800 Output Total 702 950 Balance 423 -150 Lab Results Last 24 Hours: Laboratory Results - last 24 hr 12/10/20 12/11/20 Range/Units 17:34 06:37 Hgb 8.4 L 8.0 L (13.7-17.5) gm/dl Hct 26.9 L 25.8 L (40.1-51.0) % Med Orders - Current: Current Medications Acetaminophen (Acetaminophen 325 Mg Tab) 650 mg PO Q4H PRN PRN Reason: Pain (Mild 1-3)/fever Last Admin: 12/11/20 08:58 Dose: 650 mg Documented by: Albuterol (Albuterol 0.083% 2.5 Mg/3 Ml Neb Soln) 2.5 mg NEB Q2H PRN PRN Reason: Shortness Of Breath/wheezing Last Admin: 12/11/20 04:45 Dose: 2.5 mg Documented by: Albuterol (Albuterol 6.7 Gm Inhaler) 0 gm INH QID PRN PRN Reason: Shortness of Breath Last Admin: 12/11/20 07:59 Dose: 2 puff Documented by: Albuterol/Ipratropium (Albuterol/Ipratropium 3.0-0.5 Mg/3 Ml Neb Soln) 3 ml NEB Q4H PRN PRN Reason: Shortness Of Breath/wheezing Last Admin: 12/11/20 12:16 Dose: 3 ml Documented by: Calcium Carbonate/Glycine (Calcium Carbonate 500 Mg Tab.Chew) 0 mg CHEW QID PRN PRN Reason: Other Doxycycline Hyclate (Doxycycline 100 Mg Cap) 100 mg PO BID [facility] Last Admin: 12/11/20 08:56 Dose: 100 mg Documented by: Guaifenesin (Guaifenesin 600 Mg Tab.Er) 600 mg PO BID [facility] Last Admin: 12/11/20 08:56 Dose: 600 mg Documented by: Levothyroxine Sodium (Levothyroxine 100 Mcg Tab) 100 mcg PO ACBREAKFAST [facility] Last Admin: 12/11/20 05:23 Dose: 100 mcg Documented by: Lisinopril (Lisinopril 20 Mg Tab) 20 mg PO DAILY [facility] Last Admin: 12/11/20 10:59 Dose: 20 mg Documented by: Loratadine (Loratadine 10 Mg Tab) 10 mg PO DAILY PRN PRN Reason: Allergies Lorazepam (Lorazepam 0.5 Mg Tab) 0.5 mg PO DAILY PRN PRN Reason: Other Melatonin (Melatonin 3 Mg Tab) 9 mg PO BEDTIME [facility] Last Admin: 12/10/20 21:05 Dose: 9 mg Documented by: Miscellaneous Information (Remove Patch*Nicotine*) 1 ea TRDERM DAILY [facility] Mometasone Furoate/Formoterol Fumar (Formoterol/Mometasone 200-5 Mcg 8.8 Gm Inhaler) 2 puff IH BIDRT [facility] Last Admin: 12/11/20 06:54 Dose: 2 inhalation Documented by: Nicotine (Nicotine 7 Mg/24 Hr Patch) 7 mg TRDERM DAILY [facility] Last Admin: 12/11/20 10:57 Dose: 7 mg Documented by: Ondansetron HCl (Ondansetron 4 Mg/2 Ml Sdv) 4 mg IV Q6H PRN PRN Reason: Nausea/Vomiting Last Admin: 12/10/20 07:36 Dose: 4 mg Documented by: Pantoprazole Sodium (Pantoprazole 40 Mg Tab.Cr) 40 mg PO DAILY [facility] Last Admin: 12/11/20 08:58 Dose: 40 mg Documented by: Simethicone (Simethicone 80 Mg Tab.Chew) 80 mg PO Q6H PRN PRN Reason: Gas Last Admin: 12/11/20 09:00 Dose: 80 mg Documented by: Sodium Chloride (Sodium Chloride 0.9% 10 Ml Syringe) 10 ml FLUSH ONETIME PRN PRN Reason: IV FLUSH Last Admin: 12/09/20 11:25 Dose: 10 ml Documented by: Tiotropium [place] (Tiotropium [place] 4 Gm Inhalation [place] (2.5mcg/1 Dose; 10 Doses)) 0 gm INH DAILY [facility] Last Admin: 12/11/20 07:59 Dose: 2 puff Documented by: Discontinued Medications Albuterol (Albuterol 0.083% 2.5 Mg/3 Ml Neb Soln) 2.5 mg INH QID PRN PRN Reason: Shortness of Breath Albuterol/Ipratropium (Albuterol/Ipratropium 3.0-0.5 Mg/3 Ml Neb Soln) 3 ml NEB ONETIME ONE Stop: 12/09/20 11:02 Last Admin: 12/09/20 11:40 Dose: 3 ml Documented by: Enoxaparin Sodium (Enoxaparin 40 Mg/0.4 Ml Syringe) 40 mg SUBCUT DAILY [facility] Fentanyl (Fentanyl 100 Mcg/2 Ml Sdv) Confirm Administered Dose 100 mcg .ROUTE .STK-MED ONE Stop: 12/10/20 08:32 Sodium Chloride (Normal Saline) 1,000 mls @ 150 mls/hr IV NOW STA Stop: 12/09/20 17:28 Last Infusion: 12/09/20 14:44 Dose: 0 mls/hr Documented by: Sodium Chloride (Normal Saline) 150 mls @ 100 mls/hr IV ASDIRECTED ONE Stop: 12/10/20 00:44 Last Admin: 12/09/20 23:46 Dose: 100 mls/hr Documented by: Sodium Chloride (Normal Saline) Confirm Administered Dose 100 mls @ as directed .ROUTE .STK-MED ONE Stop: 12/10/20 00:01 Last Admin: 12/10/20 02:15 Dose: Not Given Documented by: Lidocaine HCl (Xylocaine-Mpf 1%) Confirm Administered Dose 4 mls @ as directed .ROUTE .STK-MED ONE Stop: 12/10/20 08:33 Lactated Ringer's (Ringers, Lactated) Confirm Administered Dose 1,000 mls @ as directed .ROUTE .STK-MED ONE Stop: 12/10/20 09:35 Influenza Virus Vaccine (Flu Vacc Wy8817(65up)/Mf59c/Pf 60 Mcg/0.5 Ml Syringe) 60 mcg IM .ONCE ONE Stop: 12/11/20 12:01 Iopamidol (Iopamidol 612 Mg/Ml 100 Ml Bottle) 100 ml IVPUSH ONETIME ONE Stop: 12/09/20 11:05 Last Admin: 12/09/20 11:25 Dose: 100 ml Documented by: Midazolam HCl (Midazolam 1 Mg/Ml 2 Ml Sdv) Confirm Administered Dose 2 mg .ROUTE .STK-MED ONE Stop: 12/10/20 08:33 Mometasone Furoate/Formoterol Fumar (Formoterol/Mometasone 200-5 Mcg 8.8 Gm Inhaler) 2 puff IH BIDRT [facility] Nicotine (Nicotine 14 Mg/24 Hr Patch) 14 mg TRDERM DAILY [facility] Last Admin: 12/11/20 10:32 Dose: Not Given Documented by: Ondansetron HCl (Ondansetron 4 Mg/2 Ml Sdv) 4 mg IVPUSH ONETIME ONE Stop: 12/09/20 11:02 Last Admin: 12/09/20 11:35 Dose: 4 mg Documented by: Polyethylene Glycol/Electrolytes (Polyethylene Glycol/Electrolytes 4,000 Ml Bottle) 4,000 ml PO ONETIME ONE Stop: 12/09/20 21:33 Last Admin: 12/09/20 21:57 Dose: 4,000 ml Documented by: Prednisone (Prednisone 20 Mg Tab) 40 mg PO ONETIME ONE Stop: 12/09/20 15:08 Last Admin: 12/09/20 15:36 Dose: Not Given Documented by: Propofol (Propofol 200 Mg/20 Ml Sdv) Confirm Administered Dose 200 mg .ROUTE .STK-MED ONE Stop: 12/10/20 08:32 Propofol (Propofol 200 Mg/20 Ml Sdv) Confirm Administered Dose 200 mg .ROUTE .STK-MED ONE Stop: 12/10/20 09:48 Simethicone (Simethicone 80 Mg Tab.Chew) 80 mg PO ONETIME ONE Stop: 12/10/20 17:36 Last Admin: 12/10/20 21:06 Dose: 80 mg Documented by: Sodium Chloride (Sodium Chloride 0.9% 10 Ml Syringe) 10 ml FLUSH ASDIRECTED PRN PRN Reason: Keep Vein Open Last Admin: 12/09/20 11:46 Dose: 10 ml Documented by: - Exam Quality Assessment: Supplemental Oxygen General: Alert, Oriented HEENT: Pupils Equal Neck: Supple Lungs: Normal Respiratory Effort, Decreased Breath Sounds Cardiovascular: Regular Rate, Regular Rhythm GI/Abdominal Exam: Normal Bowel Sounds, Soft, Non-Tender, No Distention Extremities: Normal Inspection, Normal Range of Motion, Non-Tender, No Pedal Edema, Normal Capillary Refill Skin: Warm, Dry, Intact Neurological: No New Focal Deficit Psy/Mental Status: Anxious, Depressed - Patient Data Lab Results Last 24 hrs: Laboratory Results - last 24 hr 12/10/20 12/11/20 Range/Units 17:34 06:37 Hgb 8.4 L 8.0 L (13.7-17.5) gm/dl Hct 26.9 L 25.8 L (40.1-51.0) % Result Diagrams: 12/11/20 06:37 12/10/20 03:27 Sepsis Event Note - Evaluation Sepsis Screening Result: No Definite Risk - Focused Exam Vital Signs: Vital Signs Temp Pulse Resp BP Pulse Ox Pulse Ox 12/11/20 12:16 99 12/11/20 10:59 168/78 H 12/11/20 08:18 97.9 F 74 19 138/73 100 12/11/20 08:00 99 12/11/20 06:56 100 12/11/20 06:53 72 130/78 100 12/11/20 04:46 100 12/11/20 04:32 97.7 F 76 20 159/72 H 99 - Problem List & Annotations (1) COPD exacerbation SNOMED Code(s): 652561171 Code(s): J44.1 - CHRONIC OBSTRUCTIVE PULMONARY DISEASE W (ACUTE) EXACERBATION Status: Acute Priority: High Current Visit: No (2) GI bleed not requiring more than 4 units of blood in 24 hours, ICU, or surgery SNOMED Code(s): 00068687 Code(s): K92.2 - GASTROINTESTINAL HEMORRHAGE, UNSPECIFIED Status: Acute Priority: High Current Visit: Yes - Problem List Review Problem List Initiated/Reviewed/Updated: Yes - My Orders Last 24 Hours: My Active Orders 12/10/20 17:00 Levothyroxine [Synthroid] 100 mcg PO ACBREAKFAST 12/10/20 17:15 Doxycycline [Vibramycin] 100 mg PO BID Pantoprazole [ProTONIX] 40 mg PO DAILY 12/10/20 20:02 Patient Status [ADT] Routine 12/10/20 21:00 Melatonin 9 mg PO BEDTIME 12/11/20 07:46 Simethicone 80 mg PO Q6H PRN 12/11/20 10:45 Nicotine [Habitrol] 7 mg TRDERM DAILY lisinopriL [Prinivil] 20 mg PO DAILY 12/12/20 05:11 HEMOGLOBIN/HEMATOCRIT,HH [HEME] AM 12/12/20 09:00 Remove Patch 1 ea TRDERM DAILY - Plan Plan:: 12/09/2020 Assessment: Jean-Claude is a 79yo white male admitted for observation secondary to bright red bloody diarrhea and low hemoglobin. PMH is significant for diverticulosis, and his clinical picture points to the diagnosis of acute colonic diverticular hemorrhage. Abdominal CT revealed diverticulosis of sigmoid and descending colon without sign of inflammation. General surgery was consulted and will perform endoscopy tomorrow if hemoglobin continues to drop. He is hemodynamically stable. He is also experiencing an acute exacerbation of COPD which was diagnosed in the ED 4 days ago. He has been taking doxycycline and prednisone for this. 12/10/2020 Panendoscopy today did not demonstrate any active bleeding. He did have mu ltiple diverticuli which is likely the cause of his bleeding. We will continue to monitor his bowel movements and hemoglobin. Plan will be to discharge tomorrow as we advance his diet. Potassium is back to normal. career services coordinator is discussing care and services with him today. 12/11/2020 Hemoglobin dropped by 0.4 mg/dL. Patient continues to be symptomatic with fatigue and weakness. Socially he has no place to live except an RV. He does have a grandson in the area and he is going to try to arrange help through him. For now he will need to be hospitalized to help improve his strength and to follow his H&H. Plan: GI bleed/diverticulosis * supplemental O2 as needed to maintain O2 saturation 92-95% - hyperoxygenation may reduce his respiratory drive secondary to severe COPD * repeat hgb/hct in the morning COPD with acute exacerbation * Started back on doxycycline at his request * Completed 5 days of prednisone * supplemental O2 as needed to maintain O2 saturation 92-95%. Home O2 is 3 L. Here on 3 L he has been at 100% so we are trying to wean him as appropriate. * sub Dulera for home Symbicort Hypokalemiaresolved * repeat BMP Hypothyroidism * Levothyroxine 125mcg daily * TSH 1.55 Depression * follow-up with [facility] Telephone Order Clerk Consultation VTE prophylaxis: SCDs Code status: DNR/DNI
[2020-12-11] MEDS: LORazepam 0.5 MG Tab PO PRN (16:00)
[2020-12-11] MEDS: Melatonin 3 MG Tab PO SCH (21:46)
[2020-12-12] MEDS: Albuterol/Ipratropium 3.0-0.5 MG/3 ML Neb Soln NEB PRN ×3 (01:02→12:13)
[2020-12-12] MEDS: Acetaminophen 325 MG Tab PO PRN ×3 (01:28→13:58)
[2020-12-12] MEDS: Levothyroxine 100 MCG Tab PO SCH (06:00)
[2020-12-12] MEDS: Formoterol/Mometasone 200-5 MCG 8.8 GM Inhaler IH SCH (08:00)
[2020-12-12] MEDS: Albuterol 6.7 GM Inhaler INH PRN (08:00)
[2020-12-12] MEDS: Tiotropium Bromide 4 GM Inhalation Spray (2.5mcg/1 dose; 10 doses) INH SCH (08:00)
[2020-12-12] MEDS ORDERED: Levothyroxine 25 MCG Tab PO ONE (08:14)
[2020-12-12] MEDS ORDERED: Remove Patch*NICOTINE TRDERM SCH (09:00)
[2020-12-12] MEDS: Pantoprazole 40 MG Tab.CR PO SCH (09:01)
[2020-12-12] MEDS: Lisinopril 20 MG Tab PO SCH (09:02)
[2020-12-12] MEDS: guaiFENesin 600 MG Tab.ER PO SCH (09:03)
[2020-12-12] MEDS: Doxycycline 100 MG Cap PO SCH (09:03)
[2020-12-12] MEDS: Nicotine 7 MG/24 Hr Patch TRDERM SCH (09:04)
--- NOTE | 2020-12-12 11:17 | PCM.DCSUM1 ---
Discharge Summary - Hospital Course HPI Initial Comments: Jean-Claude is a 79yo white male who presented to the ED on 12/09/2020 due to bloody diarrhea. At 0600 today he had a bowel movement with light red diarrhea. He has had 6-8 loose BM's since which have had darker red blood in them. He has also had abdominal pain which is crampy in nature which started in the last few hours since he has been in the ED. He is nauseous. Denies any previous history of melena or hematochezia, hemorrhoids, clotting or bleeding disorder. He had a colonoscopy with polypectomy 4-5 years ago, all were benign. He has a history of diverticulosis and constipation for which he takes Miralax or a stool softener daily. Abdominal CT revealed diverticuli in the descending and sigmoid colon without any sign of inflammation. General surgery was consulted and recommended observation and endoscopy tomorrow if hgb continues to drop. Labs were u nremarkable except for Hgb of 9.5 and K+ of 3.4. He was seen in the ED 4 days ago for a COPD exacerbation, hgb at that time was 10.2, and was prescribed doxycycline and prednisone. He is on 3L of supplemental O2 at home. He still feels short of breath and is on 3L supplemental O2 with saturations in the upper 90s. [facility] a [facility] but unable to do so locally secondary to "being in transit". He is currently living in a camper with the assistance of his grandson as he is planning to make his way to [place] to live near his daughter. He smokes 4 cigarettes/day. Assessment/Plan Comment:: 12/09/2020 Assessment: Jean-Claude is a 79yo white male admitted for observation secondary to bright red bloody diarrhea and low hemoglobin. PMH is significant for diverticulosis, and his clinical picture points to the diagnosis of acute colonic diverticular hemorrhage. Abdominal CT revealed diverticulosis of sigmoid and descending colon without sign of inflammation. General surgery was consulted and will perform endoscopy tomorrow if hemoglobin continues to drop. He is hemodynamically stable. He is also experiencing an acute exacerbation of COPD which was diagnosed in the ED 4 days ago. He has been taking doxycycline and prednisone for this. Plan: GI bleed/diverticulosis * supplemental O2 as needed to maintain O2 saturation 92-95% - hyperoxygenation may reduce his respiratory drive secondary to severe COPD * repeat hgb/hct * clear liquid diet, NPO after midnight pending endoscopy tomorrow * endoscopy tomorrow if hgb continues to drop * ED consulted general surgery and they are following the case * NS at 100 mL/hr COPD with acute exacerbation * hold antibiotics, follow closely * give 40mg prednisone once to finish 5 day course for acute exacerbation * supplemental O2 as needed to maintain O2 saturation 92-95% * sub Dulera for home Symbicort Hypokalemia * 40mEq IV * repeat CMP in a.m. 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 Consultation VTE prophylaxis: SCDs Code status: DNR/DNI - Mortality Measure Prognosis:: Good Diagnosis: Stroke: No - Discharge Data Discharge Date: 12/12/20 Discharge Disposition: Home, Self-Care 01 Condition: Good - Referral to Home Health Primary Care Physician: PCP None - Discharge Diagnosis/Problem(s) (1) COPD exacerbation SNOMED Code(s): 257181091 ICD Code: J44.1 - CHRONIC OBSTRUCTIVE PULMONARY DISEASE W (ACUTE) EXACERBATION Status: Acute Priority: High Current Visit: No (2) GI bleed not requiring more than 4 units of blood in 24 hours, ICU, or surgery SNOMED Code(s): 48102871 ICD Code: K92.2 - GASTROINTESTINAL HEMORRHAGE, UNSPECIFIED Status: Acute Priority: High Current Visit: Yes - Patient Summary/Data Consults: Consultations 12/09/20 14:21 PT Evaluation and Treatment [CONS] Routine 12/09/20 15:28 Consult to Case Management/Electrical Prospecting Observer [CONS] Routine Hospital Course: 12/09/2020 Assessment: Jean-Claude is a 79yo white male admitted for observation secondary to bright red bloody diarrhea and low hemoglobin. PMH is significant for diverticulosis, and his clinical picture points to the diagnosis of acute colonic diverticular hemorrhage. Abdominal CT revealed diverticulosis of sigmoid and descending colon without sign of inflammation. General surgery was consulted and will perform endoscopy tomorrow if hemoglobin continues to drop. He is hemodynamically stable. He is also experiencing an acute exacerbation of COPD which was diagnosed in the ED 4 days ago. He has been taking doxycycline and prednisone for this. 12/10/2020 Panendoscopy today did not demonstrate any active bleeding. He did have multiple diverticuli which is likely the cause of his bleeding. We will continue to monitor his bowel movements and hemoglobin. Plan will be to discharge tomorrow as we advance his diet. Potassium is back to normal. career services director is discussing care and services with him today. 12/11/2020 Hemoglobin dropped by 0.4 mg/dL. Patient continues to be symptomatic with fatigue and weakness. Socially he has no place to live except an RV. He does have a grandson in the area and he is going to try to arrange help through him. For now he will need to be hospitalized to help improve his strength and to follow his H&H. Plan: GI bleed/diverticulosis * supplemental O2 as needed to maintain O2 saturation 92-95% - hyperoxygenation may reduce his respiratory drive secondary to severe COPD * repeat hgb/hct in the morning COPD with acute exacerbation * Started back on doxycycline at his request * Completed 5 days of prednisone * supplemental O2 as needed to maintain O2 saturation 92-95%. Home O2 is 3 L. Here on 3 L he has been at 100% so we are trying to wean him as appropriate. * sub Dulera for home Symbicort Hypokalemiaresolved * repeat BMP Hypothyroidism * Levothyroxine 125mcg daily * TSH 1.55 Depression * follow-up with [facility] Prospecting Observer Consultation VTE prophylaxis: SCDs Code status: DNR/DNI 12/12/2020 Patient continues to improve. Hemoglobin is now 8.6. Patient has arranged to stay at his grandsons house and he will have his own room and bathroom downstairs. His grandson is going to winterize his RV. Patient with an established with the [facility] and it sounds like he will be staying over the winter. He has no abdominal pain today. He has his chronic shortness of breath, but oxygen saturations are very good. He has had no more blood per rectum. - Patient Instructions Diet: Usual Diet as Tolerated Activity: As Tolerated Driving: May Drive Today Showering/Bathing: May Shower Notify Provider of: Fever, Nausea and/or Vomiting Other/Special Instructions: If you begin bleeding again please return to the emergency department. Follow-up with the [facility] as soon as possible. - Discharge Plan *PRESCRIPTION DRUG MONITORING PROGRAM REVIEWED*: No *COPY OF PRESCRIPTION DRUG MONITORING REPORT IN PATIENT JUSTYNA: No Prescriptions/Med Rec: Levothyroxine 125 mcg PO ACBREAKFAST #30 tablet Tobacco Cessation Medication: Prescription Given Home Medications: Home Meds Acetaminophen 1,000 mg PO TID PRN 12/09/20 [History] Albuterol [Proventil HFA] 2 puff INH QID PRN 12/09/20 [History] Albuterol [Proventil Neb Soln] 2.5 mg INH QID PRN 12/09/20 [History] Ascorbic Acid 1,000 mg PO DAILY 12/09/20 [History] Budesonide/Formoterol [Symbicort 160-4.5 MCG] 2 puff INH BID 12/09/20 [History] Calcium Carbonate [Tums] 500 mg CHEW QID PRN 12/09/20 [History] Calcium Carbonate/Vitamin D3 [Calcium 600Mg-D3 400 Unit Sfgl] 1 tab PO BID 12/09/20 [History] Cannabidiol (Cbd) Extract [CBD Oil] 1 dose PO ASDIRECTED PRN 12/09/20 [History] Cholecalciferol (Vitamin D3) [D3-2000] 250 mcg PO DAILY 12/09/20 [History] Ferrous Gluconate 324 mg PO Q48H 12/09/20 [History] Fluticasone Propionate [Flonase Allergy Relief] 2 sprays NASBOTH DAILY 12/09/20 [History] LORazepam [Ativan] 0.5 mg PO DAILY PRN 12/09/20 [History] Lidocaine 5% [Lidoderm 5%] 700 mg TOP DAILY 12/09/20 [History] Loratadine [Claritin] 10 mg PO DAILY PRN 12/09/20 [History] Melatonin 9 mg PO BEDTIME 12/09/20 [History] Menthol [Icy Hot] 1 patch TOP DAILY PRN 12/09/20 [History] Multivit with Iron,Minerals [Complete Senior] 1 tab PO DAILY 12/09/20 [History] [place]-3 Fatty Acids/Fish Oil [Fish Oil 1,000 mg Capsule] 1 cap PO DAILY 12/09/20 [History] Omeprazole 20 mg PO QPM 12/09/20 [History] Tiotropium [place] [Spiriva Respimat] 2 puff INH DAILY 12/09/20 [History] Zinc Sulfate 50 mg PO DAILY 12/09/20 [History] guaiFENesin [Guaifenesin] 400 mg PO TID PRN 12/09/20 [History] polyethylene glycoL 3350 [Polyethylene Glycol 3350] 17 gm PO DAILY PRN 12/09/20 [History] Levothyroxine 125 mcg PO ACBREAKFAST #30 tablet 12/12/20 [Rx] Nicotine [Habitrol] 7 mg TRDERM DAILY #0 patch 12/12/20 [Rx] Remove Patch 1 ea TRDERM DAILY each 12/12/20 [Rx] lisinopriL [Prinivil] 20 mg PO DAILY #0 tablet 12/12/20 [Rx] Patient Handouts: Chronic Obstructive Pulmonary Disease Exacerbation, Sepsis, Diagnosis, Adult, Home Oxygen Use, Adult, Gastrointestinal Bleeding, [id number], CPAP and BPAP Information, Steps to Quit Smoking Forms: ED Department Discharge Referrals: PCP,None [Primary Care Provider] - (Follow up with a medical provider when you get to [place].) - Discharge Summary/Plan Comment DC Time >30 min.: Yes Total # of Minutes for Discharge Time: 40 minutes Total time spent includes seeing the patient, doing discharge paperwork, and arranging care. - General Info Date of Service: 12/12/20 Admission Dx/Problem (Free Text: Admission Diagnosis/Problem Admission Diagnosis/Problem GI bleed not requiring more than 4 units of blood in 24 hours, ICU, or surgery Subjective Update: Patient has no complaints today other than his chronic shortness of breath. He denies any pain or abdominal pain. He denies any bloody stools. Functional Status: Reports: Pain Controlled - Review of Systems General: Reports: No Symptoms HEENT: Reports: No Symptoms Pulmonary: Reports: Shortness of Breath Cardiovascular: Reports: No Symptoms Gastrointestinal: Reports: No Symptoms - Patient Data Vitals - Most Recent: Last Vital Signs Temp 97.9 F 12/12/20 08:52 Pulse 82 12/12/20 08:52 Resp 22 H 12/12/20 08:52 BP 175/94 H 12/12/20 09:02 Pulse Ox 100 12/12/20 08:52 Weight - Most Recent: 170 lb 12.8 oz I&O - Last 24 hours: Intake & Output 12/11/20 12/12/20 12/12/20 23:59 06:59 14:59 Intake Total Output Total Balance Lab Results - Last 24 hrs: Laboratory Results - last 24 hr 12/12/20 12/12/20 Range/Units 06:08 06:08 Hgb 8.6 L (13.7-17.5) gm/dl Hct 27.3 L (40.1-51.0) % Sodium 143 (136-145) mEq/L Potassium 3.5 (3.5-5.1) mEq/L Chloride 104 (98-107) mEq/L Carbon Dioxide 34 H (21-32) mEq/L Anion Gap 8.5 (5-15) BUN 11 (7-18) mg/dL Creatinine 0.7 (0.7-1.3) mg/dL Est Cr Clr Drug Dosing 84.14 mL/min Estimated GFR (MDRD) > 60 (>60) mL/min BUN/Creatinine Ratio 15.7 (14-18) Glucose 113 H (70-99) mg/dL Calcium 8.6 (8.5-10.1) mg/dL Med Orders - Current: Current Medications Acetaminophen (Acetaminophen 325 Mg Tab) 650 mg PO Q4H PRN PRN Reason: Pain (Mild 1-3)/fever Last Admin: 12/12/20 09:11 Dose: 650 mg Documented by: Albuterol (Albuterol 0.083% 2.5 Mg/3 Ml Neb Soln) 2.5 mg NEB Q2H PRN PRN Reason: Shortness Of Breath/wheezing Last Admin: 12/11/20 04:45 Dose: 2.5 mg Documented by: Albuterol (Albuterol 6.7 Gm Inhaler) 0 gm INH QID PRN PRN Reason: Shortness of Breath Last Admin: 12/12/20 08:00 Dose: 2 puff Documented by: Albuterol/Ipratropium (Albuterol/Ipratropium 3.0-0.5 Mg/3 Ml Neb Soln) 3 ml NEB Q4H PRN PRN Reason: Shortness Of Breath/wheezing Last Admin: 12/12/20 06:15 Dose: 3 ml Documented by: Calcium Carbonate/Glycine (Calcium Carbonate 500 Mg Tab.Chew) 0 mg CHEW QID PRN PRN Reason: Other Doxycycline Hyclate (Doxycycline 100 Mg Cap) 100 mg PO BID DIAZ Last Admin: 12/12/20 09:03 Dose: 100 mg Documented by: Guaifenesin (Guaifenesin 600 Mg Tab.Er) 600 mg PO BID [facility] Last Admin: 12/12/20 09:03 Dose: 600 mg Documented by: Levothyroxine Sodium (Levothyroxine 125 Mcg Tab) 125 mcg PO ACBREAKFAST [facility] Lisinopril (Lisinopril 20 Mg Tab) 20 mg PO DAILY [facility] Last Admin: 12/12/20 09:02 Dose: 20 mg Documented by: Loratadine (Loratadine 10 Mg Tab) 10 mg PO DAILY PRN PRN Reason: Allergies Last Admin: 12/12/20 09:11 Dose: 10 mg Documented by: Lorazepam (Lorazepam 0.5 Mg Tab) 0.5 mg PO DAILY PRN PRN Reason: Other Last Admin: 12/11/20 16:00 Dose: 0.5 mg Documented by: Melatonin (Melatonin 3 Mg Tab) 9 mg PO BEDTIME [facility] Last Admin: 12/11/20 21:46 Dose: 9 mg Documented by: Miscellaneous Information (Remove Patch*Nicotine*) 1 ea TRDERM DAILY [facility] Last Admin: 12/12/20 10:41 Dose: Not Given Documented by: Mometasone Furoate/Formoterol Fumar (Formoterol/Mometasone 200-5 Mcg 8.8 Gm Inhaler) 2 puff IH BIDRT [facility] Last Admin: 12/12/20 08:00 Dose: 2 puff Documented by: Nicotine (Nicotine 7 Mg/24 Hr Patch) 7 mg TRDERM DAILY [facility] Last Admin: 12/12/20 09:04 Dose: Not Given Documented by: Ondansetron HCl (Ondansetron 4 Mg/2 Ml Sdv) 4 mg IV Q6H PRN PRN Reason: Nausea/Vomiting Last Admin: 12/10/20 07:36 Dose: 4 mg Documented by: Pantoprazole Sodium (Pantoprazole 40 Mg Tab.Cr) 40 mg PO DAILY [facility] Last Admin: 12/12/20 09:01 Dose: 40 mg Documented by: Simethicone (Simethicone 80 Mg Tab.Chew) 80 mg PO Q6H PRN PRN Reason: Gas Last Admin: 12/11/20 09:00 Dose: 80 mg Documented by: Sodium Chloride (Sodium Chloride 0.9% 10 Ml Syringe) 10 ml FLUSH ONETIME PRN PRN Reason: IV FLUSH Last Admin: 12/09/20 11:25 Dose: 10 ml Documented by: Tiotropium [place] (Tiotropium [place] 4 Gm Inhalation [place] (2.5mcg/1 Dose; 10 Doses)) 0 gm INH DAILY [facility] Last Admin: 12/12/20 08:00 Dose: 2 puff Documented by: Discontinued Medications Albuterol (Albuterol 0.083% 2.5 Mg/3 Ml Neb Soln) 2.5 mg INH QID PRN PRN Reason: Shortness of Breath Albuterol/Ipratropium (Albuterol/Ipratropium 3.0-0.5 Mg/3 Ml Neb Soln) 3 ml NEB ONETIME ONE Stop: 12/09/20 11:02 Last Admin: 12/09/20 11:40 Dose: 3 ml Documented by: Enoxaparin Sodium (Enoxaparin 40 Mg/0.4 Ml Syringe) 40 mg SUBCUT DAILY [facility] Fentanyl (Fentanyl 100 Mcg/2 Ml Sdv) Confirm Administered Dose 100 mcg .ROUTE .STK-MED ONE Stop: 12/10/20 08:32 Sodium Chloride (Normal Saline) 1,000 mls @ 150 mls/hr IV NOW STA Stop: 12/09/20 17:28 Last Infusion: 12/09/20 14:44 Dose: 0 mls/hr Documented by: Sodium Chloride (Normal Saline) 150 mls @ 100 mls/hr IV ASDIRECTED ONE Stop: 12/10/20 00:44 Last Admin: 12/09/20 23:46 Dose: 100 mls/hr Documented by: Sodium Chloride (Normal Saline) Confirm Administered Dose 100 mls @ as directed .ROUTE .STK-MED ONE Stop: 12/10/20 00:01 Last Admin: 12/10/20 02:15 Dose: Not Given Documented by: Lidocaine HCl (Xylocaine-Mpf 1%) Confirm Administered Dose 4 mls @ as directed .ROUTE .STK-MED ONE Stop: 12/10/20 08:33 Lactated Ringer's (Ringers, Lactated) Confirm Administered Dose 1,000 mls @ as directed .ROUTE .STK-MED ONE Stop: 12/10/20 09:35 Influenza Virus Vaccine (Flu Vacc Qj1201(65up)/Mf59c/Pf 60 Mcg/0.5 Ml Syringe) 60 mcg IM .ONCE ONE Stop: 12/11/20 12:01 Iopamidol (Iopamidol 612 Mg/Ml 100 Ml Bottle) 100 ml IVPUSH ONETIME ONE Stop: 12/09/20 11:05 Last Admin: 12/09/20 11:25 Dose: 100 ml Documented by: Levothyroxine Sodium (Levothyroxine 100 Mcg Tab) 100 mcg PO ACBREAKFAST [facility] Last Admin: 12/12/20 06:00 Dose: 100 mcg Documented by: Levothyroxine Sodium (Levothyroxine 25 Mcg Tab) 25 mcg PO ONETIME ONE Stop: 12/12/20 08:15 Last Admin: 12/12/20 09:02 Dose: 25 mcg Documented by: Midazolam HCl (Midazolam 1 Mg/Ml 2 Ml Sdv) Confirm Administered Dose 2 mg .ROUTE .STK-MED ONE Stop: 12/10/20 08:33 Mometasone Furoate/Formoterol Fumar (Formoterol/Mometasone 200-5 Mcg 8.8 Gm Inhaler) 2 puff IH BIDRT [facility] Nicotine (Nicotine 14 Mg/24 Hr Patch) 14 mg TRDERM DAILY [facility] Last Admin: 12/11/20 10:32 Dose: Not Given Documented by: Ondansetron HCl (Ondansetron 4 Mg/2 Ml Sdv) 4 mg IVPUSH ONETIME ONE Stop: 12/09/20 11:02 Last Admin: 12/09/20 11:35 Dose: 4 mg Documented by: Polyethylene Glycol/Electrolytes (Polyethylene Glycol/Electrolytes 4,000 Ml Bottle) 4,000 ml PO ONETIME ONE Stop: 12/09/20 21:33 Last Admin: 12/09/20 21:57 Dose: 4,000 ml Documented by: Prednisone (Prednisone 20 Mg Tab) 40 mg PO ONETIME ONE Stop: 12/09/20 15:08 Last Admin: 12/09/20 15:36 Dose: Not Given Documented by: Propofol (Propofol 200 Mg/20 Ml Sdv) Confirm Administered Dose 200 mg .ROUTE .STK-MED ONE Stop: 12/10/20 08:32 Propofol (Propofol 200 Mg/20 Ml Sdv) Confirm Administered Dose 200 mg .ROUTE .STK-MED ONE Stop: 12/10/20 09:48 Simethicone (Simethicone 80 Mg Tab.Chew) 80 mg PO ONETIME ONE Stop: 12/10/20 17:36 Last Admin: 12/10/20 21:06 Dose: 80 mg Documented by: Sodium Chloride (Sodium Chloride 0.9% 10 Ml Syringe) 10 ml FLUSH ASDIRECTED PRN PRN Reason: Keep Vein Open Last Admin: 12/09/20 11:46 Dose: 10 ml Documented by: - Exam Quality Assessment: Reports: Supplemental Oxygen General: Reports: Alert, Oriented HEENT: Reports: Pupils Equal, Mucous Membr. Moist/[place] Neck: Reports: Supple Lungs: Reports: Crackles (Bibasilar), Wheezing (Throughout). Denies: Normal Respiratory Effort (Barrel chest with increased effort) Cardiovascular: Reports: Regular Rate, Regular Rhythm GI/Abdominal Exam: Normal Bowel Sounds, Soft, Non-Tender, No Distention Extremities: Normal Inspection, Normal Range of Motion, Non-Tender, Normal Capillary Refill, Pedal Edema (Trace) Skin: Reports: Warm, Dry, Intact Neurological: Reports: No New Focal Deficit Psy/Mental Status: Reports: Alert, Normal Affect, Normal Mood
[2020-12-12] MEDS: LORazepam 0.5 MG Tab PO PRN (12:01)
[2020-12-13] MEDS ORDERED: Levothyroxine 125 MCG Tab PO SCH (06:00)
== END 2020-12-12 17:53 | disposition home or self-care (01) | DRG 378 ==
LOC: JD.ED 10:17 → JD.MS 14:07 → JD.ICU 14:07 → EDLOC 14:07 → UNDOADMIN 14:07
PROVIDERS: ADMIT Family Medicine; ATTEND Family Medicine
PROC: 30233N1 Transfusion of Nonautologous Red Blood Cells into Peripheral Vein, Percutaneous Approach (ICD-10-PCS; principal; 2020-12-09)
PROC: 0DJ08ZZ Inspection of Upper Intestinal Tract, Via Natural or Artificial Opening Endoscopic (ICD-10-PCS; 2020-12-10)
PROC: 0DJD8ZZ Inspection of Lower Intestinal Tract, Via Natural or Artificial Opening Endoscopic (ICD-10-PCS; 2020-12-10)
PROC: 3E02340 Introduction of Influenza Vaccine into Muscle, Percutaneous Approach (ICD-10-PCS; 2020-12-12)
DX: K92.2 Gastrointestinal hemorrhage, unspecified (principal); K57.31 Diverticulosis of large intestine without perforation or abscess with bleeding; J44.1 Chronic obstructive pulmonary disease with (acute) exacerbation; E87.6 Hypokalemia; E03.9 Hypothyroidism, unspecified; F32.A Depression, unspecified; F17.210 Nicotine dependence, cigarettes, uncomplicated; H54.7 Unspecified visual loss; F32.9 Major depressive disorder, single episode, unspecified; Z66 Do not resuscitate; Z20.822 Contact with and (suspected) exposure to COVID-19; E78.00 Pure hypercholesterolemia, unspecified; Z79.890 Hormone replacement therapy; Z79.51 Long term (current) use of inhaled steroids; Z79.899 Other long term (current) drug therapy; M54.9 Dorsalgia, unspecified; G89.29 Other chronic pain; M81.0 Age-related osteoporosis without current pathological fracture; F41.9 Anxiety disorder, unspecified; Z23 Encounter for immunization
CPT/HCPCS: 36415; 71045; 74177; 80053; 81001; 83880; 84443; 84484; 85025; 86140; 86850; 86900; 86901; 86922; 87635; 93005; 94640; 96374; 99285; J2405; J7030; Q9967; 00813; 36430; 80048; 83735; 85014; 85018; 85610; 85730; 90694; 93010; 94667; 94668; 94761; 96376; 97163-GP; 99100; 99221; 99232; 99239; A9270-GY; G0008; J2250; J2704; J3010; J7120; J7620-GY; P9016; U0002

== ENCOUNTER 2021-02-13 03:07 | Inpatient (IN) | payer OTHER, MEDICARE ==
[2021-02-13] MEDS ORDERED: Albuterol/Ipratropium 3.0-0.5 MG/3 ML Neb Soln NEB ONE ×2 (03:37→07:58)
[2021-02-13 06:36] LABS: CORONAVIRUS COVID-19 NAA NEGATIVE (NEGATIVE)
[2021-02-13] MEDS ORDERED: LORazepam 2 MG/ML SDV IVPUSH ONE (08:29)
[2021-02-13] MEDS ORDERED: Sodium Chloride 0.9% 10 ML Syringe FLUSH PRN (08:55)
[2021-02-13] MEDS ORDERED: Iopamidol 755 Mg/ML 100 ML Bottle IVPUSH ONE (08:55)
[2021-02-13] MEDS ORDERED: Sodium Chloride 0.9% 45 ML IV SCH (09:00)
[2021-02-13] MEDS ORDERED: Doxycycline 100 MG in Sodium Chloride 0.9% 100 ML IV ONE (10:56)
[2021-02-13] MEDS ORDERED: methylPREDNISolone Sodium Succinate 125 MG/2 ML SDV IVPUSH ONE (10:57)
[2021-02-13] MEDS ORDERED: Oseltamivir 75 MG Cap PO ONE (10:57)
[2021-02-13] MEDS ORDERED: guaiFENesin 100 MG/5 ML Soln 10 ML UD Cup PO PRN (12:04)
[2021-02-13] MEDS: Albuterol/Ipratropium 3.0-0.5 MG/3 ML Neb Soln NEB SCH ×2 (15:10→22:12)
[2021-02-13] MEDS: Acetaminophen 325 MG Tab PO PRN (17:05)
[2021-02-13] MEDS: Pantoprazole 40 MG Tab.CR PO SCH (17:09)
[2021-02-13] MEDS: Albuterol 0.083% 2.5 MG/3 ML Neb Soln NEB PRN (18:18)
[2021-02-13] MEDS ORDERED: methylPREDNISolone Sod Succ 125 MG in Sodium Chloride 0.9% 250 ML IV SCH (21:00)
[2021-02-13] MEDS: Oseltamivir 75 MG Cap PO SCH (21:24)
[2021-02-13] MEDS: Melatonin 3 MG Tab PO SCH (21:25)
[2021-02-13] MEDS: methylPREDNISolone Sodium Succinate 125 MG/2 ML SDV IVPUSH SCH (21:26)
[2021-02-13] MEDS: Doxycycline 100 MG in Sodium Chloride 0.9% 100 ML IV SCH (21:26)
[2021-02-14] MEDS: Albuterol/Ipratropium 3.0-0.5 MG/3 ML Neb Soln NEB SCH ×4 (03:04→21:52)
[2021-02-14] MEDS: Acetaminophen 325 MG Tab PO PRN ×3 (03:50→22:16)
[2021-02-14] MEDS: Levothyroxine 125 MCG Tab PO SCH (06:10)
[2021-02-14] MEDS: Enoxaparin 40 MG/0.4 ML Syringe SUBCUT SCH (08:15)
[2021-02-14] MEDS: methylPREDNISolone Sodium Succinate 125 MG/2 ML SDV IVPUSH SCH ×2 (08:15→20:00)
[2021-02-14] MEDS: Oseltamivir 75 MG Cap PO SCH ×2 (08:15→19:59)
[2021-02-14] MEDS: Doxycycline 100 MG in Sodium Chloride 0.9% 100 ML IV SCH ×2 (08:16→20:00)
[2021-02-14] MEDS: guaiFENesin 100 MG/5 ML Soln 10 ML UD Cup PO SCH ×3 (08:32→20:00)
[2021-02-14] MEDS: Ferrous Sulfate 324 MG Tab.EC PO SCH (08:36)
[2021-02-14] MEDS ORDERED: Sodium Chloride 0.65% Nasal Spray 45 ML Bottle NAS PRN (10:29)
[2021-02-14] MEDS: LORazepam 0.5 MG Tab PO PRN (11:34)
[2021-02-14] MEDS: Nicotine 7 MG/24 Hr Patch TRDERM SCH (12:42)
[2021-02-14] MEDS: Albuterol 0.083% 2.5 MG/3 ML Neb Soln NEB PRN (16:38)
[2021-02-14] MEDS: Pantoprazole 40 MG Tab.CR PO SCH (17:24)
[2021-02-14] MEDS: Melatonin 3 MG Tab PO SCH (19:59)
[2021-02-15] MEDS: LORazepam 0.5 MG Tab PO PRN ×2 (03:16→20:24)
[2021-02-15] MEDS: Albuterol/Ipratropium 3.0-0.5 MG/3 ML Neb Soln NEB SCH ×4 (03:26→22:20)
[2021-02-15] MEDS: Levothyroxine 125 MCG Tab PO SCH (06:16)
[2021-02-15] MEDS: Doxycycline 100 MG in Sodium Chloride 0.9% 100 ML IV SCH ×2 (09:19→20:24)
[2021-02-15] MEDS: methylPREDNISolone Sodium Succinate 125 MG/2 ML SDV IVPUSH SCH ×2 (09:19→20:26)
[2021-02-15] MEDS: Enoxaparin 40 MG/0.4 ML Syringe SUBCUT SCH (09:20)
[2021-02-15] MEDS: Oseltamivir 75 MG Cap PO SCH ×2 (09:21→20:25)
[2021-02-15] MEDS: Lisinopril 20 MG Tab PO SCH (09:25)
[2021-02-15] MEDS: guaiFENesin 100 MG/5 ML Soln 10 ML UD Cup PO SCH ×3 (09:27→20:25)
[2021-02-15] MEDS: Nicotine 7 MG/24 Hr Patch TRDERM SCH (09:33)
[2021-02-15] MEDS: Albuterol 0.083% 2.5 MG/3 ML Neb Soln NEB PRN ×2 (11:37→17:51)
[2021-02-15] MEDS: Acetaminophen 325 MG Tab PO PRN (13:19)
[2021-02-15] MEDS: Pantoprazole 40 MG Tab.CR PO SCH (18:38)
[2021-02-15] MEDS: Melatonin 3 MG Tab PO SCH (21:34)
[2021-02-16] MEDS: Albuterol/Ipratropium 3.0-0.5 MG/3 ML Neb Soln NEB SCH ×5 (03:32→20:56)
[2021-02-16] MEDS: Levothyroxine 125 MCG Tab PO SCH (05:59)
[2021-02-16] MEDS: methylPREDNISolone Sodium Succinate 125 MG/2 ML SDV IVPUSH SCH (08:07)
[2021-02-16] MEDS: Enoxaparin 40 MG/0.4 ML Syringe SUBCUT SCH (08:07)
[2021-02-16] MEDS: guaiFENesin 100 MG/5 ML Soln 10 ML UD Cup PO SCH ×3 (08:07→20:34)
[2021-02-16] MEDS: Ferrous Sulfate 324 MG Tab.EC PO SCH (08:07)
[2021-02-16] MEDS: Lisinopril 20 MG Tab PO SCH (08:08)
[2021-02-16] MEDS: Doxycycline 100 MG in Sodium Chloride 0.9% 100 ML IV SCH (08:08)
[2021-02-16] MEDS: Oseltamivir 75 MG Cap PO SCH ×2 (08:08→20:34)
[2021-02-16] MEDS: LORazepam 0.5 MG Tab PO PRN (09:21)
[2021-02-16] MEDS: Acetaminophen 325 MG Tab PO PRN ×2 (09:34→15:47)
[2021-02-16] MEDS: Sertraline 25 MG Tab PO SCH (11:13)
[2021-02-16] MEDS: Nicotine 7 MG/24 Hr Patch TRDERM SCH (11:14)
[2021-02-16] MEDS: Pantoprazole 40 MG Tab.CR PO SCH (17:37)
[2021-02-16] MEDS: Doxycycline 100 MG Cap PO SCH (20:34)
[2021-02-17] MEDS: Melatonin 3 MG Tab PO SCH (00:21)
[2021-02-17] MEDS: Acetaminophen 325 MG Tab PO PRN (00:26)
[2021-02-17] MEDS: LORazepam 0.5 MG Tab PO PRN ×2 (01:18→08:23)
[2021-02-17] MEDS: guaiFENesin/Dextromethorphan 100-10 MG/5 ML Soln 5 ML Cup PO PRN (01:30)
[2021-02-17] MEDS: Albuterol/Ipratropium 3.0-0.5 MG/3 ML Neb Soln NEB SCH ×4 (03:10→20:49)
[2021-02-17] MEDS: Levothyroxine 125 MCG Tab PO SCH (06:23)
[2021-02-17] MEDS: predniSONE 20 MG Tab PO SCH (06:23)
[2021-02-17] MEDS: Oseltamivir 75 MG Cap PO SCH ×2 (09:18→20:25)
[2021-02-17] MEDS: Lisinopril 20 MG Tab PO SCH (09:18)
[2021-02-17] MEDS: guaiFENesin 100 MG/5 ML Soln 10 ML UD Cup PO SCH ×3 (09:20→20:24)
[2021-02-17] MEDS: Enoxaparin 40 MG/0.4 ML Syringe SUBCUT SCH (09:20)
[2021-02-17] MEDS: Doxycycline 100 MG Cap PO SCH ×2 (09:23→20:25)
[2021-02-17] MEDS: Sertraline 25 MG Tab PO SCH (09:41)
[2021-02-17] MEDS: Nicotine 7 MG/24 Hr Patch TRDERM SCH (13:37)
[2021-02-17] MEDS: Ondansetron 4 MG/2 ML SDV IVPUSH PRN (15:32)
[2021-02-17] MEDS: Pantoprazole 40 MG Tab.CR PO SCH (17:46)
[2021-02-18] MEDS: Acetaminophen 325 MG Tab PO PRN ×4 (00:34→23:12)
[2021-02-18] MEDS: Melatonin 3 MG Tab PO SCH ×2 (00:35→20:33)
[2021-02-18] MEDS: Albuterol/Ipratropium 3.0-0.5 MG/3 ML Neb Soln NEB SCH ×4 (03:22→21:24)
[2021-02-18] MEDS: Ondansetron 4 MG/2 ML SDV IVPUSH PRN ×2 (04:44→13:04)
[2021-02-18] MEDS: Levothyroxine 125 MCG Tab PO SCH (06:46)
[2021-02-18] MEDS: predniSONE 20 MG Tab PO SCH ×2 (06:46→06:48)
[2021-02-18] MEDS: Sertraline 25 MG Tab PO SCH ×2 (08:23→10:17)
[2021-02-18] MEDS: Ferrous Sulfate 324 MG Tab.EC PO SCH (08:23)
[2021-02-18] MEDS: guaiFENesin 100 MG/5 ML Soln 10 ML UD Cup PO SCH ×3 (08:23→20:34)
[2021-02-18] MEDS: Lisinopril 20 MG Tab PO SCH (08:24)
[2021-02-18] MEDS: Enoxaparin 40 MG/0.4 ML Syringe SUBCUT SCH (08:25)
[2021-02-18] MEDS: Nicotine 7 MG/24 Hr Patch TRDERM SCH (11:52)
[2021-02-18] MEDS ORDERED: Sodium Chloride 0.9% 500 ML IV ONE ×2 (12:00→13:23)
[2021-02-18] MEDS: Polyethylene Glycol 3350 Powder 17 GM Packet PO ONE ×2 (13:05→20:01)
[2021-02-18] MEDS ORDERED: Iopamidol 612 MG/ML 100 ML Bottle IVPUSH ONE (13:34)
[2021-02-18] MEDS ORDERED: Sodium Chloride 0.9% 10 ML Syringe FLUSH PRN (13:34)
[2021-02-18] MEDS ORDERED: Sodium Chloride 0.9% 100 ML IV SCH (13:45)
[2021-02-18] MEDS ORDERED: Norepinephrine 4 MG in Dextrose 5% in Water 246 ML IV SCH ×2 (13:45)
[2021-02-18] MEDS: Pantoprazole 40 MG Tab.CR PO SCH (17:00)
[2021-02-18] MEDS ORDERED: Piperacillin/Tazobactam 4.5 GM in Sodium Chloride 0.9% 100 ML IV ONE (17:00)
[2021-02-18] MEDS: Docusate Sodium 100 MG Cap PO SCH (18:29)
[2021-02-18] MEDS: Albuterol 0.083% 2.5 MG/3 ML Neb Soln NEB PRN (19:37)
[2021-02-19] MEDS: Piperacillin/Tazobactam 4.5 GM in Sodium Chloride 0.9% 100 ML IV SCH ×3 (00:59→17:03)
[2021-02-19] MEDS: Albuterol/Ipratropium 3.0-0.5 MG/3 ML Neb Soln NEB SCH ×4 (02:19→20:57)
[2021-02-19] MEDS: Albuterol 0.083% 2.5 MG/3 ML Neb Soln NEB PRN ×3 (04:40→17:18)
[2021-02-19] MEDS: Levothyroxine 125 MCG Tab PO SCH (05:07)
[2021-02-19] MEDS: Acetaminophen 325 MG Tab PO PRN ×3 (05:07→21:11)
[2021-02-19] MEDS: guaiFENesin/Dextromethorphan 100-10 MG/5 ML Soln 5 ML Cup PO PRN (05:30)
[2021-02-19] MEDS: predniSONE 20 MG Tab PO SCH (06:09)
[2021-02-19] MEDS: Enoxaparin 40 MG/0.4 ML Syringe SUBCUT SCH (08:07)
[2021-02-19] MEDS: guaiFENesin 100 MG/5 ML Soln 10 ML UD Cup PO SCH ×3 (08:07→21:10)
[2021-02-19] MEDS: Docusate Sodium 100 MG Cap PO SCH (08:07)
[2021-02-19] MEDS: Polyethylene Glycol 3350 Powder 17 GM Packet PO SCH (08:07)
[2021-02-19] MEDS: Sertraline 25 MG Tab PO SCH (08:07)
[2021-02-19] MEDS: Nicotine 7 MG/24 Hr Patch TRDERM SCH (09:54)
[2021-02-19] MEDS: Ondansetron 4 MG/2 ML SDV IVPUSH PRN (12:46)
[2021-02-19] MEDS: Pantoprazole 40 MG Tab.CR PO SCH (17:03)
[2021-02-19] MEDS: Melatonin 3 MG Tab PO SCH (21:00)
[2021-02-20] MEDS: Albuterol 0.083% 2.5 MG/3 ML Neb Soln NEB PRN ×3 (00:09→15:12)
[2021-02-20] MEDS: Piperacillin/Tazobactam 4.5 GM in Sodium Chloride 0.9% 100 ML IV SCH ×3 (01:03→17:29)
[2021-02-20] MEDS: Albuterol/Ipratropium 3.0-0.5 MG/3 ML Neb Soln NEB SCH ×2 (02:42→19:22)
[2021-02-20] MEDS: Levothyroxine 125 MCG Tab PO SCH (06:44)
[2021-02-20] MEDS: predniSONE 20 MG Tab PO SCH (06:46)
[2021-02-20] MEDS: Acetaminophen 325 MG Tab PO PRN ×2 (06:58→14:05)
[2021-02-20] MEDS: Docusate Sodium 100 MG Cap PO SCH (09:11)
[2021-02-20] MEDS: Ferrous Sulfate 324 MG Tab.EC PO SCH (09:11)
[2021-02-20] MEDS: Polyethylene Glycol 3350 Powder 17 GM Packet PO SCH (09:12)
[2021-02-20] MEDS: guaiFENesin 100 MG/5 ML Soln 10 ML UD Cup PO SCH ×3 (09:12→20:01)
[2021-02-20] MEDS: Tiotropium Bromide 4 GM Inhalation Spray (2.5mcg/1 dose; 10 doses) INH SCH (09:22)
[2021-02-20] MEDS: Albuterol 6.7 GM Inhaler INH PRN ×3 (09:26→20:16)
[2021-02-20] MEDS: Enoxaparin 40 MG/0.4 ML Syringe SUBCUT SCH (09:47)
[2021-02-20] MEDS: Sertraline 25 MG Tab PO SCH (09:47)
[2021-02-20] MEDS: Nicotine 7 MG/24 Hr Patch TRDERM SCH (10:45)
[2021-02-20] MEDS: Ondansetron 4 MG/2 ML SDV IVPUSH PRN (12:40)
[2021-02-20] MEDS: Pantoprazole 40 MG Tab.CR PO SCH (17:32)
[2021-02-20] MEDS: oxyCODONE 5 MG Tab PO PRN (20:01)
[2021-02-20] MEDS: LORazepam 0.5 MG Tab PO PRN (20:02)
[2021-02-20] MEDS: Melatonin 3 MG Tab PO SCH (20:03)
[2021-02-21] MEDS: Piperacillin/Tazobactam 4.5 GM in Sodium Chloride 0.9% 100 ML IV SCH ×3 (00:09→19:20)
[2021-02-21] MEDS: oxyCODONE 5 MG Tab PO PRN ×2 (00:11→04:40)
[2021-02-21] MEDS: Albuterol 6.7 GM Inhaler INH PRN ×3 (03:06→20:47)
[2021-02-21] MEDS: Levothyroxine 125 MCG Tab PO SCH ×2 (04:40→05:19)
[2021-02-21] MEDS: Albuterol 0.083% 2.5 MG/3 ML Neb Soln NEB PRN ×2 (07:42→16:06)
[2021-02-21] MEDS: Tiotropium Bromide 4 GM Inhalation Spray (2.5mcg/1 dose; 10 doses) INH SCH (08:00)
[2021-02-21] MEDS ORDERED: predniSONE 20 MG Tab PO SCH (09:00)
[2021-02-21] MEDS: guaiFENesin 100 MG/5 ML Soln 10 ML UD Cup PO SCH ×3 (09:11→20:55)
[2021-02-21] MEDS: Enoxaparin 40 MG/0.4 ML Syringe SUBCUT SCH (09:12)
[2021-02-21] MEDS: Docusate Sodium 100 MG Cap PO SCH ×2 (09:12→09:17)
[2021-02-21] MEDS: Sertraline 25 MG Tab PO SCH (09:12)
[2021-02-21] MEDS: Polyethylene Glycol 3350 Powder 17 GM Packet PO SCH ×2 (09:12→09:19)
[2021-02-21] MEDS: Nicotine 7 MG/24 Hr Patch TRDERM SCH ×2 (09:13→09:50)
[2021-02-21] MEDS: Pantoprazole 40 MG Tab.CR PO SCH (19:20)
[2021-02-21] MEDS: Ondansetron 4 MG/2 ML SDV IVPUSH PRN (20:17)
[2021-02-21] MEDS: Acetaminophen 325 MG Tab PO PRN (20:58)
[2021-02-21] MEDS: Melatonin 3 MG Tab PO SCH (21:00)
[2021-02-21] MEDS ORDERED: guaiFENesin 100 MG/5 ML Soln 10 ML UD Cup PO ONE (22:00)
[2021-02-22] MEDS: Albuterol 0.083% 2.5 MG/3 ML Neb Soln NEB PRN (01:57)
[2021-02-22] MEDS: Piperacillin/Tazobactam 4.5 GM in Sodium Chloride 0.9% 100 ML IV SCH ×4 (04:26→20:05)
[2021-02-22] MEDS: Albuterol 6.7 GM Inhaler INH PRN ×5 (06:01→20:30)
[2021-02-22] MEDS: Levothyroxine 125 MCG Tab PO SCH (06:26)
[2021-02-22] MEDS ORDERED: predniSONE 20 MG Tab PO SCH (07:00)
[2021-02-22] MEDS: Acetaminophen 325 MG Tab PO PRN ×2 (07:38→20:04)
[2021-02-22] MEDS: guaiFENesin 100 MG/5 ML Soln 10 ML UD Cup PO SCH ×3 (08:11→20:03)
[2021-02-22] MEDS: Enoxaparin 40 MG/0.4 ML Syringe SUBCUT SCH (08:11)
[2021-02-22] MEDS: Ferrous Sulfate 324 MG Tab.EC PO SCH (08:11)
[2021-02-22] MEDS: Formoterol/Mometasone 200-5 MCG 8.8 GM Inhaler IH SCH ×2 (08:15→20:31)
[2021-02-22] MEDS: Tiotropium Bromide 4 GM Inhalation Spray (2.5mcg/1 dose; 10 doses) INH SCH (08:15)
[2021-02-22] MEDS: Docusate Sodium 100 MG Cap PO SCH (08:59)
[2021-02-22] MEDS: Polyethylene Glycol 3350 Powder 17 GM Packet PO SCH (08:59)
[2021-02-22] MEDS: Sertraline 25 MG Tab PO SCH (09:00)
[2021-02-22] MEDS ORDERED: hydrALAZINE 20 MG/ML SDV IVPUSH ONE (09:00)
[2021-02-22] MEDS: Lisinopril 20 MG Tab PO SCH (09:18)
[2021-02-22] MEDS ORDERED: Lisinopril 20 MG Tab PO ONE (10:15)
[2021-02-22] MEDS: LORazepam 0.5 MG Tab PO PRN (10:42)
[2021-02-22] MEDS: Nicotine 7 MG/24 Hr Patch TRDERM SCH (10:42)
[2021-02-22] MEDS: Ondansetron 4 MG/2 ML SDV IVPUSH PRN (15:37)
[2021-02-22] MEDS: Pantoprazole 40 MG Tab.CR PO SCH (20:02)
[2021-02-23] MEDS: Melatonin 3 MG Tab PO SCH (00:40)
[2021-02-23] MEDS: Ondansetron 4 MG/2 ML SDV IVPUSH PRN ×2 (00:41→07:59)
[2021-02-23] MEDS: LORazepam 0.5 MG Tab PO PRN (00:41)
[2021-02-23] MEDS: Albuterol 6.7 GM Inhaler INH PRN ×5 (00:53→20:46)
[2021-02-23] MEDS: Piperacillin/Tazobactam 4.5 GM in Sodium Chloride 0.9% 100 ML IV SCH ×3 (04:03→20:25)
[2021-02-23] MEDS: Acetaminophen 325 MG Tab PO PRN ×3 (04:59→23:20)
[2021-02-23] MEDS: Levothyroxine 125 MCG Tab PO SCH (05:43)
[2021-02-23] MEDS: Albuterol 0.083% 2.5 MG/3 ML Neb Soln NEB PRN (05:59)
[2021-02-23] MEDS: Potassium Chloride 20 MEQ Tab.ER PO ONE ×2 (07:59→08:11)
[2021-02-23] MEDS: Sertraline 25 MG Tab PO SCH (08:21)
[2021-02-23] MEDS: Polyethylene Glycol 3350 Powder 17 GM Packet PO SCH (08:21)
[2021-02-23] MEDS: Docusate Sodium 100 MG Cap PO SCH (08:22)
[2021-02-23] MEDS: guaiFENesin 100 MG/5 ML Soln 10 ML UD Cup PO SCH ×3 (08:22→20:24)
[2021-02-23] MEDS: Enoxaparin 40 MG/0.4 ML Syringe SUBCUT SCH (08:22)
[2021-02-23] MEDS: Lisinopril 20 MG Tab PO SCH (08:22)
[2021-02-23] MEDS: Potassium Chloride 10 MEQ in Premix Bag 1 BAG IV SCH ×2 (08:22→10:26)
[2021-02-23] MEDS: Tiotropium Bromide 4 GM Inhalation Spray (2.5mcg/1 dose; 10 doses) INH SCH (08:33)
[2021-02-23] MEDS: Formoterol/Mometasone 200-5 MCG 8.8 GM Inhaler IH SCH ×2 (08:33→20:47)
[2021-02-23] MEDS ORDERED: Hyaluronidase, Human Recombinant 150 Units/1 ML SDV SUBCUT ONE (08:42)
[2021-02-23] MEDS: Potassium Bicarbonate/Cit Ac 20 MEQ Effervescent Tab PO SCH ×2 (09:54→20:24)
[2021-02-23] MEDS: Nicotine 7 MG/24 Hr Patch TRDERM SCH (10:23)
[2021-02-23] MEDS: traMADol 50 MG Tab PO PRN (10:27)
[2021-02-24] MEDS: Albuterol 0.083% 2.5 MG/3 ML Neb Soln NEB PRN (00:45)
[2021-02-24] MEDS: Albuterol 6.7 GM Inhaler INH PRN ×5 (04:38→20:40)
[2021-02-24] MEDS: Levothyroxine 125 MCG Tab PO SCH (05:09)
[2021-02-24] MEDS: Piperacillin/Tazobactam 4.5 GM in Sodium Chloride 0.9% 100 ML IV SCH ×3 (05:10→20:51)
[2021-02-24] MEDS: Acetaminophen 325 MG Tab PO PRN ×2 (07:48→16:39)
[2021-02-24] MEDS: traMADol 50 MG Tab PO PRN (07:50)
[2021-02-24] MEDS: Formoterol/Mometasone 200-5 MCG 8.8 GM Inhaler IH SCH ×2 (07:59→20:39)
[2021-02-24] MEDS: Tiotropium Bromide 4 GM Inhalation Spray (2.5mcg/1 dose; 10 doses) INH SCH (07:59)
[2021-02-24] MEDS: Docusate Sodium 100 MG Cap PO SCH (08:41)
[2021-02-24] MEDS: Enoxaparin 40 MG/0.4 ML Syringe SUBCUT SCH (08:41)
[2021-02-24] MEDS: guaiFENesin 100 MG/5 ML Soln 10 ML UD Cup PO SCH ×3 (08:41→20:51)
[2021-02-24] MEDS: Ferrous Sulfate 324 MG Tab.EC PO SCH (08:41)
[2021-02-24] MEDS: Lisinopril 20 MG Tab PO SCH (08:42)
[2021-02-24] MEDS: buPROPion 100 MG Tab.SR PO SCH (12:16)
[2021-02-25] MEDS: Albuterol 6.7 GM Inhaler INH PRN ×4 (02:07→20:54)
[2021-02-25] MEDS: Acetaminophen 325 MG Tab PO PRN ×3 (03:26→20:30)
[2021-02-25] MEDS: Piperacillin/Tazobactam 4.5 GM in Sodium Chloride 0.9% 100 ML IV SCH ×3 (04:15→20:34)
[2021-02-25] MEDS: Levothyroxine 125 MCG Tab PO SCH (07:20)
[2021-02-25] MEDS: Lisinopril 20 MG Tab PO SCH (08:13)
[2021-02-25] MEDS: buPROPion 100 MG Tab.SR PO SCH (08:14)
[2021-02-25] MEDS: guaiFENesin 100 MG/5 ML Soln 10 ML UD Cup PO SCH ×3 (08:14→20:30)
[2021-02-25] MEDS: Enoxaparin 40 MG/0.4 ML Syringe SUBCUT SCH (08:14)
[2021-02-25] MEDS: Docusate Sodium 100 MG Cap PO SCH (08:15)
[2021-02-25] MEDS: Tiotropium Bromide 4 GM Inhalation Spray (2.5mcg/1 dose; 10 doses) INH SCH (08:30)
[2021-02-25] MEDS: Formoterol/Mometasone 200-5 MCG 8.8 GM Inhaler IH SCH ×2 (08:30→20:53)
[2021-02-25] MEDS ORDERED: Iopamidol 612 MG/ML 100 ML Bottle IVPUSH ONE (09:30)
[2021-02-25] MEDS ORDERED: Sodium Chloride 0.9% 10 ML Syringe FLUSH PRN (09:30)
[2021-02-25] MEDS: LORazepam 0.5 MG Tab PO PRN (12:04)
[2021-02-25] MEDS: Ondansetron 4 MG/2 ML SDV IVPUSH PRN (12:04)
[2021-02-26] MEDS: Albuterol 6.7 GM Inhaler INH PRN ×3 (01:03→21:16)
[2021-02-26] MEDS: Ondansetron 4 MG/2 ML SDV IVPUSH PRN ×2 (02:04→10:34)
[2021-02-26] MEDS: Piperacillin/Tazobactam 4.5 GM in Sodium Chloride 0.9% 100 ML IV SCH ×3 (06:04→19:53)
[2021-02-26] MEDS: Levothyroxine 125 MCG Tab PO SCH (06:04)
[2021-02-26] MEDS: Acetaminophen 325 MG Tab PO PRN ×2 (06:10→19:54)
[2021-02-26] MEDS: Formoterol/Mometasone 200-5 MCG 8.8 GM Inhaler IH SCH ×2 (08:26→21:15)
[2021-02-26] MEDS: Tiotropium Bromide 4 GM Inhalation Spray (2.5mcg/1 dose; 10 doses) INH SCH (08:26)
[2021-02-26] MEDS: buPROPion 100 MG Tab.SR PO SCH (10:41)
[2021-02-26] MEDS: Ferrous Sulfate 324 MG Tab.EC PO SCH (10:42)
[2021-02-26] MEDS: Docusate Sodium 100 MG Cap PO SCH (10:42)
[2021-02-26] MEDS: Lisinopril 20 MG Tab PO SCH (10:44)
[2021-02-26] MEDS: guaiFENesin 100 MG/5 ML Soln 10 ML UD Cup PO SCH ×4 (10:45→21:52)
[2021-02-26] MEDS: Enoxaparin 40 MG/0.4 ML Syringe SUBCUT SCH (10:45)
[2021-02-26] MEDS: traMADol 50 MG Tab PO PRN (10:56)
[2021-02-26] MEDS: LORazepam 0.5 MG Tab PO PRN (12:04)
[2021-02-26] MEDS: Potassium Chloride 20 MEQ Tab.ER PO SCH ×3 (13:38→16:53)
[2021-02-26] MEDS ORDERED: hydrALAZINE 20 MG/ML SDV IVPUSH PRN (15:46)
[2021-02-26] MEDS ORDERED: Albuterol 0.083% 2.5 MG/3 ML Neb Soln INH PRN (17:01)
[2021-02-26] MEDS: Fluticasone Propionate Nasal Spray 16 GM Bottle NASBOTH SCH (18:25)
[2021-02-26] MEDS: amLODIPine 5 MG Tab PO SCH (18:26)
[2021-02-26] MEDS: Furosemide 20 MG/2 ML VIAL IVPUSH SCH ×2 (18:27→19:55)
[2021-02-27] MEDS: traMADol 50 MG Tab PO PRN ×2 (01:56→23:30)
[2021-02-27] MEDS: Albuterol 6.7 GM Inhaler INH PRN ×2 (01:59→18:35)
[2021-02-27] MEDS: Furosemide 20 MG/2 ML VIAL IVPUSH SCH ×3 (02:07→20:50)
[2021-02-27] MEDS: Piperacillin/Tazobactam 4.5 GM in Sodium Chloride 0.9% 100 ML IV SCH ×3 (04:15→12:18)
[2021-02-27] MEDS: Levothyroxine 125 MCG Tab PO SCH (08:09)
[2021-02-27] MEDS: buPROPion 100 MG Tab.SR PO SCH (08:38)
[2021-02-27] MEDS: Lisinopril 20 MG Tab PO SCH (08:39)
[2021-02-27] MEDS: Enoxaparin 40 MG/0.4 ML Syringe SUBCUT SCH (08:40)
[2021-02-27] MEDS: amLODIPine 5 MG Tab PO SCH ×3 (08:43→14:30)
[2021-02-27] MEDS: Tiotropium Bromide 4 GM Inhalation Spray (2.5mcg/1 dose; 10 doses) INH SCH (08:49)
[2021-02-27] MEDS: Formoterol/Mometasone 200-5 MCG 8.8 GM Inhaler IH SCH ×2 (08:49→21:25)
[2021-02-27] MEDS: LORazepam 0.5 MG Tab PO PRN (09:14)
[2021-02-27] MEDS: guaiFENesin 100 MG/5 ML Soln 10 ML UD Cup PO SCH ×3 (10:29→20:50)
[2021-02-27] MEDS: Docusate Sodium 100 MG Cap PO SCH (10:32)
[2021-02-27] MEDS: Acetaminophen 325 MG Tab PO PRN ×2 (10:35→18:31)
[2021-02-27] MEDS: Potassium Chloride 20 MEQ Tab.ER PO SCH ×3 (10:41→14:20)
[2021-02-27] MEDS: Fluticasone Propionate Nasal Spray 16 GM Bottle NASBOTH SCH (14:44)
[2021-02-27] MEDS: Cefepime 2 GM in Sodium Chloride 0.9% 50 ML IV SCH (17:43)
[2021-02-28] MEDS: Cefepime 2 GM in Sodium Chloride 0.9% 50 ML IV SCH ×3 (00:36→16:21)
[2021-02-28] MEDS: LORazepam 0.5 MG Tab PO PRN ×2 (01:15→10:39)
[2021-02-28] MEDS: Albuterol 6.7 GM Inhaler INH PRN ×3 (01:51→17:54)
[2021-02-28] MEDS: Acetaminophen 325 MG Tab PO PRN ×2 (03:34→16:20)
[2021-02-28] MEDS: Levothyroxine 125 MCG Tab PO SCH (06:25)
[2021-02-28] MEDS: Formoterol/Mometasone 200-5 MCG 8.8 GM Inhaler IH SCH (08:36)
[2021-02-28] MEDS: Tiotropium Bromide 4 GM Inhalation Spray (2.5mcg/1 dose; 10 doses) INH SCH (08:36)
[2021-02-28] MEDS: Docusate Sodium 100 MG Cap PO SCH (09:07)
[2021-02-28] MEDS: Lisinopril 20 MG Tab PO SCH (09:07)
[2021-02-28] MEDS: amLODIPine 5 MG Tab PO SCH (09:08)
[2021-02-28] MEDS: Enoxaparin 40 MG/0.4 ML Syringe SUBCUT SCH (09:09)
[2021-02-28] MEDS: guaiFENesin 100 MG/5 ML Soln 10 ML UD Cup PO SCH ×2 (09:09→14:00)
[2021-02-28] MEDS: buPROPion 100 MG Tab.SR PO SCH (09:09)
[2021-02-28] MEDS: Ferrous Sulfate 324 MG Tab.EC PO SCH (09:09)
[2021-02-28] MEDS: Furosemide 20 MG/2 ML VIAL IVPUSH SCH (09:11)
[2021-02-28] MEDS: Fluticasone Propionate Nasal Spray 16 GM Bottle NASBOTH SCH (09:20)
[2021-02-28] MEDS: traMADol 50 MG Tab PO PRN (10:40)
[2021-02-28] MEDS: methylPREDNISolone Sodium Succinate 40 MG/1 ML SDV IVPUSH SCH (13:50)
[2021-02-28] MEDS ORDERED: amLODIPine 2.5 MG Tab PO ONE (16:45)
[2021-03-01] MEDS: methylPREDNISolone Sodium Succinate 40 MG/1 ML SDV IVPUSH SCH ×4 (00:01→21:29)
[2021-03-01] MEDS: Cefepime 2 GM in Sodium Chloride 0.9% 50 ML IV SCH ×3 (00:01→17:09)
[2021-03-01] MEDS: guaiFENesin 100 MG/5 ML Soln 10 ML UD Cup PO SCH ×4 (00:02→21:29)
[2021-03-01] MEDS: Formoterol/Mometasone 200-5 MCG 8.8 GM Inhaler IH SCH ×3 (00:15→20:52)
[2021-03-01] MEDS: Albuterol 6.7 GM Inhaler INH PRN ×5 (00:15→15:10)
[2021-03-01] MEDS: Acetaminophen 325 MG Tab PO PRN ×3 (00:47→21:28)
[2021-03-01] MEDS: LORazepam 0.5 MG Tab PO PRN ×2 (01:49→14:14)
[2021-03-01] MEDS: Levothyroxine 125 MCG Tab PO SCH (05:53)
[2021-03-01] MEDS: Tiotropium Bromide 4 GM Inhalation Spray (2.5mcg/1 dose; 10 doses) INH SCH (08:08)
[2021-03-01] MEDS: buPROPion 100 MG Tab.SR PO SCH (08:28)
[2021-03-01] MEDS: Docusate Sodium 100 MG Cap PO SCH (08:29)
[2021-03-01] MEDS: Lisinopril 20 MG Tab PO SCH (08:39)
[2021-03-01] MEDS: amLODIPine 5 MG Tab PO SCH (08:39)
[2021-03-01] MEDS: Furosemide 20 MG/2 ML VIAL IVPUSH SCH (08:41)
[2021-03-01] MEDS: Enoxaparin 40 MG/0.4 ML Syringe SUBCUT SCH (08:41)
[2021-03-01] MEDS: Fluticasone Propionate Nasal Spray 16 GM Bottle NASBOTH SCH (08:58)
[2021-03-01] MEDS ORDERED: amLODIPine 2.5 MG Tab PO SCH (09:00)
[2021-03-01] MEDS ORDERED: Polyethylene Glycol 3350 Powder 17 GM Packet PO PRN (13:01)
[2021-03-01] MEDS: traMADol 50 MG Tab PO PRN (14:24)
[2021-03-02] MEDS: Albuterol 6.7 GM Inhaler INH PRN ×6 (00:03→23:16)
[2021-03-02] MEDS: Cefepime 2 GM in Sodium Chloride 0.9% 50 ML IV SCH ×4 (00:08→23:59)
[2021-03-02] MEDS: LORazepam 0.5 MG Tab PO PRN ×2 (00:15→09:38)
[2021-03-02] MEDS: traMADol 50 MG Tab PO PRN ×3 (02:01→23:59)
[2021-03-02] MEDS: Levothyroxine 125 MCG Tab PO SCH (05:33)
[2021-03-02] MEDS: Acetaminophen 325 MG Tab PO PRN ×2 (05:33→17:12)
[2021-03-02] MEDS: methylPREDNISolone Sodium Succinate 40 MG/1 ML SDV IVPUSH SCH ×3 (05:34→20:31)
[2021-03-02] MEDS: Formoterol/Mometasone 200-5 MCG 8.8 GM Inhaler IH SCH ×2 (08:09→20:39)
[2021-03-02] MEDS: Tiotropium Bromide 4 GM Inhalation Spray (2.5mcg/1 dose; 10 doses) INH SCH (08:10)
[2021-03-02] MEDS: guaiFENesin 100 MG/5 ML Soln 10 ML UD Cup PO SCH ×3 (08:42→23:10)
[2021-03-02] MEDS: Ferrous Sulfate 324 MG Tab.EC PO SCH (08:43)
[2021-03-02] MEDS: Multivitamin Tab PO SCH (08:43)
[2021-03-02] MEDS: Enoxaparin 40 MG/0.4 ML Syringe SUBCUT SCH (08:43)
[2021-03-02] MEDS: Lisinopril 20 MG Tab PO SCH (08:43)
[2021-03-02] MEDS: Potassium Chloride 20 MEQ Tab.ER PO SCH ×2 (08:43→12:15)
[2021-03-02] MEDS: Docusate Sodium 100 MG Cap PO SCH (08:43)
[2021-03-02] MEDS: buPROPion 100 MG Tab.SR PO SCH (08:43)
[2021-03-02] MEDS: amLODIPine 5 MG Tab PO SCH (08:44)
[2021-03-02] MEDS: Furosemide 20 MG/2 ML VIAL IVPUSH SCH (08:44)
[2021-03-02] MEDS: Fluticasone Propionate Nasal Spray 16 GM Bottle NASBOTH SCH (08:45)
[2021-03-02] MEDS: Megestrol Susp 40 MG/ML 10 ML UD Cup PO SCH (12:16)
[2021-03-02] MEDS ORDERED: amLODIPine 2.5 MG Tab PO ONE (14:00)
[2021-03-02] MEDS: Ondansetron 4 MG/2 ML SDV IVPUSH PRN (17:11)
[2021-03-03] MEDS: Albuterol 6.7 GM Inhaler INH PRN (01:44)
[2021-03-03] MEDS: methylPREDNISolone Sodium Succinate 40 MG/1 ML SDV IVPUSH SCH ×2 (05:12→14:59)
[2021-03-03] MEDS: Acetaminophen 325 MG Tab PO PRN (05:12)
[2021-03-03] MEDS: Levothyroxine 125 MCG Tab PO SCH (05:12)
[2021-03-03] MEDS: LORazepam 0.5 MG Tab PO PRN (06:45)
[2021-03-03] MEDS: Formoterol/Mometasone 200-5 MCG 8.8 GM Inhaler IH SCH (08:11)
[2021-03-03] MEDS: Tiotropium Bromide 4 GM Inhalation Spray (2.5mcg/1 dose; 10 doses) INH SCH (08:11)
[2021-03-03] MEDS ORDERED: amLODIPine 5 MG Tab PO SCH (09:00)
[2021-03-03] MEDS: Lisinopril 20 MG Tab PO SCH (09:14)
[2021-03-03] MEDS: Multivitamin Tab PO SCH (09:24)
[2021-03-03] MEDS: Docusate Sodium 100 MG Cap PO SCH (09:25)
[2021-03-03] MEDS: buPROPion 100 MG Tab.SR PO SCH (09:25)
[2021-03-03] MEDS: guaiFENesin 100 MG/5 ML Soln 10 ML UD Cup PO SCH (09:28)
[2021-03-03] MEDS: Megestrol Susp 40 MG/ML 10 ML UD Cup PO SCH (09:29)
[2021-03-03] MEDS: Furosemide 20 MG/2 ML VIAL IVPUSH SCH (09:30)
[2021-03-03] MEDS: Fluticasone Propionate Nasal Spray 16 GM Bottle NASBOTH SCH (09:30)
[2021-03-03] MEDS: Cefepime 2 GM in Sodium Chloride 0.9% 50 ML IV SCH (09:30)
[2021-03-03] MEDS: Enoxaparin 40 MG/0.4 ML Syringe SUBCUT SCH (09:30)
[2021-03-03] MEDS: Ondansetron 4 MG/2 ML SDV IVPUSH PRN (12:15)
[2021-03-03] MEDS: traMADol 50 MG Tab PO PRN (12:53)
== END 2021-03-03 13:25 | DRG 193 ==
LOC: JD.ED 03:07 → JD.ICU 11:51 → JD.MS 13:32 → JD.ICU 02-18 14:39 → JD.MS 02-22 10:36
PROVIDERS: ADMIT Internal Medicine; ATTEND Internal Medicine
PROC: 5A09557 Assistance with Respiratory Ventilation, Greater than 96 Consecutive Hours, Continuous Positive Airway Pressure (ICD-10-PCS; principal; 2021-02-13)
DX: J10.1 Influenza due to other identified influenza virus with other respiratory manifestations (principal); R09.02 Hypoxemia; J96.01 Acute respiratory failure with hypoxia; A41.9 Sepsis, unspecified organism; J18.9 Pneumonia, unspecified organism; J96.02 Acute respiratory failure with hypercapnia; J44.1 Chronic obstructive pulmonary disease with (acute) exacerbation; F33.2 Major depressive disorder, recurrent severe without psychotic features; E87.2 Acidosis; J44.0 Chronic obstructive pulmonary disease with (acute) lower respiratory infection; K57.90 Diverticulosis of intestine, part unspecified, without perforation or abscess without bleeding; J15.1 Pneumonia due to Pseudomonas; F32.A Depression, unspecified; F41.9 Anxiety disorder, unspecified; Z66 Do not resuscitate; I10 Essential (primary) hypertension; Z79.51 Long term (current) use of inhaled steroids; E03.9 Hypothyroidism, unspecified; Z20.822 Contact with and (suspected) exposure to COVID-19; R91.1 Solitary pulmonary nodule; J30.9 Allergic rhinitis, unspecified; H54.7 Unspecified visual loss; E78.00 Pure hypercholesterolemia, unspecified; M81.0 Age-related osteoporosis without current pathological fracture; I95.9 Hypotension, unspecified; F17.210 Nicotine dependence, cigarettes, uncomplicated; K21.9 Gastro-esophageal reflux disease without esophagitis; D64.9 Anemia, unspecified; Z79.890 Hormone replacement therapy; Z91.19 Patient's noncompliance with other medical treatment and regimen; Z79.899 Other long term (current) drug therapy; Z79.52 Long term (current) use of systemic steroids; Z86.16 Personal history of COVID-19
CPT/HCPCS: 0240U; 36415; 36600; 71045; 71250; 71275; 74177; 80048; 80053; 82272; 82803; 82947; 82977; 83605; 83735; 83880; 84145; 84484; 85025; 85027; 85379; 86140; 87040; 87077; 87154; 87186; 87635; 87641; 93005; 93306; 94640; 94660; 94667; 94668; 94761; 96374; 96375; 97110; 97116; 97162; 97530; 99285; 93010; A9270-GY; J0360; J0692; J1650; J1940; J2060; J2405; J2543; J2920; J2930; J3470; J3480; J3490; J7030; J7040; J7060; J7512; J7620-GY; Q3014; Q9967; U0002